=== PATIENT | male | born 1945 ===

== ENCOUNTER 2018-05-23 00:30 | Inpatient (IN) | payer OTHER ==
[2018-05-23] MEDS: Sodium Chloride 0.9% 1,000 ML IV SCH ×3 (00:45→16:45)
[2018-05-23] MEDS ORDERED: Lidocaine 1% w/Epinephrine 1:100K 20 ML VIAL ONE (00:49)
[2018-05-23 01:28] LABS: Band 20 % (5-11); Hemoglobin 12.2 g/dL (14.0-18.0); Lymphocytes 4 % (21-51); MDiff Complete? YES; Mean Corpuscular HGB CONC 33.6 g/dL (32.0-36.0); Mean Corpuscular Hemoglobin 30.5 pg (27.0-31.0); Mean Corpuscular Volume 90.7 fL (78.0-98.0); Mean Platelet Volume 7.3 fL (7.4-10.4); Monocytes 3 % (0-10); Neutrophil 73 % (42-75); Platelet Count 200 thou/uL (130-400); RBC Distribution Width 12.4 % (11.5-14.5); Red Blood Cell (RBC) Count 4.02 mill/uL (4.70-6.10); White Blood Cell (WBC) Count 10.4 thou/uL (4.8-10.8)
[2018-05-23 01:31] LABS: ALT (SGPT) 12 U/L (8-55); AST (SGOT) 22 U/L (5-34); Albumin 3.9 g/dL (3.4-4.8); Alkaline Phosphatase 71 U/L (40-150); Anion Gap 13 mmol/L (10-20); BUN (Urea Nitrogen) 15 mg/dL (8.4-25.7); Bilirubin, Total 0.4 mg/dL (0.2-1.2); Calc. Creatinine Clearance 0 mL/min (70-130); Calcium 8.5 mg/dL (7.8-10.44); Carbon Dioxide 20 mmol/L (23-31); Chloride 106 mmol/L (98-107); Estimated GFR-MDRD 83; Glucose 116 mg/dL (83-110); Potassium 3.5 mmol/L (3.5-5.1); Protein, Total 6.9 g/dL (5.8-8.1); Sodium 135 mmol/L (136-145)
[2018-05-23] MEDS ORDERED: Meropenem 2 GM, Admixture Fee 1 EACH in Sodium Chloride 0.9% 100 ML IVPB SCH (02:00)
[2018-05-23 02:07] LABS: Bilirubin Negative (Negative); Blood, Urine Small (Negative); Clarity CLOUDY (Clear); Glucose, Urine (Dipstick) Negative (Negative); Leukocyte Moderate (Negative); Nitrite Positive (Negative); Protein, Urine (Dipstick) Negative (Neg-Trace); Specific Gravity, Urine 1.019 (1.002-1.036); Urobilinogen 0.2 mg/dL (0.2-1.0); pH, Urine 5.5 (5.0-9.0)
[2018-05-23 02:09] LABS: Bacteria/HPF 4+ HPF (None Seen); Hyaline Casts/LPF 0-3 HYALINE CAST LPF (0-3 Hyaline); Pathc Cast-AUWi Flag 0.14 (0-2.49); Squamous Epithelial 0-3 HPF (0-3)
[2018-05-23 02:23] LABS: Renal Epithelial None Seen HPF (0-3); Transitional Epithelial NONE SEEN HPF (0-3)
[2018-05-23] MEDS ORDERED: Morphine 4 MG/ML VIAL ONE ×2 (02:28→04:13)
[2018-05-23] MEDS ORDERED: Ondansetron PF 4 MG/2 ML Vial IVP PRN (03:16)
[2018-05-23 04:34] LABS: #Lymphocytes 0.4 thou/uL (1.20-3.40); #Monocytes 0.5 thou/uL (0.11-0.59); #Neutrophils 9.7 thou/uL (1.40-6.50); %Basophils 0.1 % (0.0-1.0); %Lymphocytes 3.3 % (21.0-51.0); %Monocytes 4.5 % (0.0-10.0); %Neutrophils 92.1 % (42.0-75.0); Hemoglobin 10.2 g/dL (14.0-18.0); Mean Corpuscular HGB CONC 33.7 g/dL (32.0-36.0); Mean Corpuscular Hemoglobin 30.6 pg (27.0-31.0); Mean Corpuscular Volume 90.6 fL (78.0-98.0); Mean Platelet Volume 7.7 fL (7.4-10.4); Platelet Count 181 thou/uL (130-400); RBC Distribution Width 12.3 % (11.5-14.5); Red Blood Cell (RBC) Count 3.34 mill/uL (4.70-6.10); White Blood Cell (WBC) Count 10.5 thou/uL (4.8-10.8)
[2018-05-23 04:45] LABS: Lactic Acid 1.7 mmol/L (0.5-2.2)
[2018-05-23 04:50] LABS: Anion Gap 9 mmol/L (10-20); BUN (Urea Nitrogen) 13 mg/dL (8.4-25.7); Calc. Creatinine Clearance 0 mL/min (70-130); Calcium 7.2 mg/dL (7.8-10.44); Carbon Dioxide 20 mmol/L (23-31); Chloride 109 mmol/L (98-107); Estimated GFR-MDRD Greater than 90; Glucose 121 mg/dL (83-110); Potassium 3.3 mmol/L (3.5-5.1); Sodium 135 mmol/L (136-145)
[2018-05-23 06:28] VITALS: BMI 26.9
[2018-05-23] MEDS ORDERED: Enoxaparin Sodium 40 MG/0.4 ML SYRINGE SC SCH (09:00)
[2018-05-23] MEDS: Acetaminophen 325 MG TAB PO PRN ×2 (09:04→19:36)
--- NOTE | 2018-05-23 09:13 | RAD ---
CHEST 1 VIEW: HISTORY: Central line placement. COMPARISON: None. FINDINGS: There is a central line with tip at the mid SVC. No pneumothorax. Likely chronic elevation of the left hemidiaphragm. IMPRESSION: Uncomplicated placement of a central catheter. POS: CEDRICK
--- NOTE | 2018-05-23 09:36 | CT ---
PRELIMINARY REPORT/[facility]/EMERGENTY AFTER-HOURS PROCEDURE CT Abdomen and Pelvis With Intravenous Contrast EXAM DATE/TIME: 05/23/2018 1:53 AM CLINICAL HISTORY: 72 years old, male; Pain; Abdominal pain; Generalized; Patient HX: Jarek presents to the ed C/O abdomin al pain after being transported by ems. Ems reports hr 115, BP 103 sbp, temp 103.0, given 650mg tylen ol. 300 ml ns. PT reports pain began 6-8 hrs ago. PT has erythema to the left foot. TECHNIQUE: Axial computed tomography images of the abdomen and pelvis with intravenous contrast. Coronal reformatted images were created and reviewed. COMPARISON: No relevant prior studies available. FINDINGS: Lower thorax: No acute findings. ABDOMEN: Liver: Normal. No mass. Gallbladder and bile ducts: Normal. No calcified stones. No ductal dilation. Pancreas: Normal. No ductal dilation. Spleen: Normal. No splenomegaly. Adrenals: Normal. No mass. Kidneys and ureters: Small incidental left renal cyst. Kidneys otherwise unremarkable. Stomach and bowel: No bowel wall thickening or intestinal obstruction. Colonic diverticulosis. No div erticulitis. Appendix: Appendix not visualized. No evidence of appendicitis. PELVIS: Bladder: Unremarkable as visualized. Reproductive: Mild prostatomegaly. ABDOMEN and PELVIS: Intraperitoneal space: Normal. No free air. No significant fluid collection. Bones/joints: Multifocal sclerotic osseous lesions in the sacrum and pelvic bones, potentially repres enting metastases. Soft tissues: Small umbilical hernia containing fat only. Vasculature: Normal. No abdominal aortic aneurysm. Lymph nodes: Bulky retroperitoneal and bilateral iliac chain lymphadenopathy. Enlarged left inguinal lymph nodes. The largest measures 1.5 cm short axis with mild associated inflammation. Mildly increased attenuation of the mesentery near its root with pseudocapsule and small associated mesenteric lymph nodes, consistent with mesenteric panniculitis. IMPRESSION: 1. Bulky retroperitoneal and bilateral iliac chain lymphadenopathy compatible with lymphoma or metast atic disease. 2. Enlarged left inguinal lymph nodes. The largest measures 1.5 cm short axis with mild associated in flammation. This could represent lymphadenitis, lymphoma, or metastatic disease. 3. Mesenteric panniculitis. 4. Multifocal sclerotic osseous lesions in the sacrum and pelvic bones, potentially representing meta stases. Thank you for allowing us to participate in the care of your patient. Dictated and Authenticated by: Ivan Ann MD 05/23/2018 2:23 AM Central Time ([place] & [place]) FINAL REPORT AD AND PELVIC CT SCAN WITH IV CONTRAST: EMERGENCY AFTER HOURS EXAM TIME: 1:55 a.m. DATE: 05/23/2018. FINDINGS: There are extensive abnormal lymph nodes in the retroperitoneum, periaortic region, aortocaval region , as well as the right and left iliac chains and in the upper pelvis with periaortic nodes up to 3.5 cm and right iliac node up to 3.7 cm and right pelvic node up to 2.8 cm. There are some minimally en larged reactive inguinal nodes worse on the left side. Central mesenteric fat stranding with a pseud omembrane, evidence for mesenteric panniculitis. Fat-containing umbilical hernia. There is a partia l cleft-type appearance involving the rectum vertically oriented extending from near the anus up to t he rectosigmoid. I am not certain as to the etiology of this, conceivably this could be related to p rior surgery, although there are no surgical sutures. Another consideration would be that of a recto colonic fistula, possibly secondary to radiation or prior anorectal ulceration. Consideration for a nonemergent followup colonoscopy in this regard is suggested. There is some minimal linear stranding in the left lower abdomen, possibly some trace free fluid or some thickening. This report, particularly concerning the lymphadenopathy and the bone metastasis, and the abnormal-ap pearing rectum were discussed with Nurse Pittman in the ICU. Recommendation for followup nonemergent colonoscopy. Disagree with [facility]. The abnormal-appearing rectum was not mentioned. POS: CEDRICK
--- NOTE | 2018-05-23 13:36 | CON ---
DATE OF CONSULTATION: 05/23/2018 HISTORY OF PRESENT ILLNESS: Mr. Colon is a [facility] inmate who has a history of being diagnosed with prostate cancer last year. He said he has been receiving shots for the cancer to try to keep it out of his bones, but denies ever being told he had metastatic disease. He presented with abdominal discomfort and fever. CT of his abdomen and pelvis showed extensive lymphadenopathy. He is admitted to the Critical Care Unit. He has received several liters of volume replacement and actually says he feels closer to his baseline now. PAST MEDICAL HISTORY: Remarkable for a lipid disorder, hypertension, coronary artery bypass grafting, valve replacement in the past and appendectomy. FAMILY HISTORY: Not obtained. SOCIAL HISTORY: Non contributory. ALLERGIES: Reports an allergy to ASPIRIN. MEDICATIONS: Prior to admission, he was reportedly on aspirin, Plavix, Lasix, atorvastatin, lisinopril, amantadine, 5 mg of prednisone and ranitidine. REVIEW OF SYSTEMS: Ten point review of systems completed, otherwise negative. PHYSICAL EXAMINATION: GENERAL: He says he just hurts all over. He is a fairly tangential historian. VITAL SIGNS: Blood pressure 97/52, heart rate is 80, respiratory rate is 21, oximetry is 98. HEENT: Pupils are equal. Sclerae are anicteric. NECK: Supple. No cervical lymphadenopathy. LUNGS: Clear. HEART: Regular rhythm. S1 and S2 are audible. This is a grade 2/6 systolic murmur. ABDOMEN: Soft, protuberant, nontender. EXTREMITIES: Without clubbing, cyanosis or edema. LABORATORY DATA: Sodium 135, potassium 3.3, chloride 109, bicarbonate 20, BUN 13, creatinine 0.76. White count 10.5, hemoglobin 10.2, platelets 181,000. Urinalysis 7-10 white cells, 4-6 red cells. IMPRESSION: Probable metastatic prostate cancer. Enlarged left inguinal lymph node was seen on CAT scan. I could barely palpate this on exam. He had multiple sclerotic osseous lesions in his sacrum and pelvis consistent with metastatic disease as well. I suspect most of his discomfort and all of the radiographic abnormalities are related to metastatic prostate cancer. He will need referral back to [facility] Oncology clinic or an inpatient evaluation. I do not find anything going on that is acute at this time. He has responded well to volume resuscitation and could be transferred out of the medical unit. There are no positive cultures reported back yet. He does not need critical care monitoring in my opinion. This is a 70 minute consult, with greater than 50% of time spent on unit in coordination of care. WILL
[2018-05-24] MEDS: Acetaminophen 325 MG TAB PO PRN (03:51)
[2018-05-24] MEDS ORDERED: traMADol HCl 50 MG TAB PO PRN ×2 (08:42)
[2018-05-24] MEDS ORDERED: Morphine 4 MG/ML VIAL SLOW IVP PRN (09:00)
--- NOTE | 2018-05-24 09:06 | PDOC.PN ---
- Subjective Encounter Start Date: 05/24/18 (f/u sepsis) Encounter Start Time: 09:03 Subjective: pt c/o fever this morning and left sided abd pain. denies any difficulty -: with urination. low appetite. denies any problems with bm's - Objective Resuscitation Status: Resuscitation Status FULL:Full Resuscitation Vital Signs & Weight: Vital Signs (12 hours) Temp Pulse Resp BP Pulse Ox 05/24/18 08:10 98.7 F 76 18 129/60 99 05/24/18 06:29 98.8 F 05/24/18 03:53 100.5 F H 84 22 H 120/58 L 96 05/23/18 23:31 99.1 F 74 18 128/60 99 Weight Admit Weight 199 lb Weight 198 lb 10.184 oz Most Recent Monitor Data Heart Rate from ECG 94 NIBP 116/57 NIBP BP-Mean 76 Respiration from ECG 19 SpO2 100 I&O: 05/23/18 05/24/18 05/25/18 06:59 06:59 06:59 Intake Total 240 Output Total 625 Balance -385 Result Diagrams: 05/24/18 08:36 05/24/18 08:36 Phys Exam - Physical Examination Constitutional: NAD Respiratory: no wheezing, no rales, no rhonchi, clear to auscultation bilateral Cardiovascular: RRR, no significant murmur Gastrointestinal: soft, positive bowel sounds ttp along left side with palpable fullness. No rebound/guarding Musculoskeletal: no edema Neurological: non-focal, moves all 4 limbs Psychiatric: normal affect Deviation from normal: slight erythema along distal LLE - pt reports normal for hm -: no induration Dx/Plan (1) Metastatic malignant neoplasm to prostate Code(s): C79.82 - SECONDARY MALIGNANT NEOPLASM OF GENITAL ORGANS Status: Acute (2) Hypertension Code(s): I10 - ESSENTIAL (PRIMARY) HYPERTENSION Status: Chronic Qualifiers: Hypertension type: essential hypertension Qualified Code(s): I10 - Essential (primary) hypertension (3) Coronary artery disease Code(s): I25.10 - ATHSCL HEART DISEASE OF [place] CORONARY ARTERY W/O ANG PCTRS Status: Chronic (4) Dyslipidemia Code(s): E78.5 - HYPERLIPIDEMIA, UNSPECIFIED Status: Chronic - Plan * Pt admitted with sepsis dx, not currently on abx and cx negative at this time with only fever 100.5 this morning. Follow cultures and start abx if increasing * consult Onc for metastatic disease and tx choices * resume home meds except aspirin as pt reports itching with aspirin. He has a hx of coronary stents and reports the last one in 2002. Will continue with plavix only and continue the lovenox or dvt prophy * change diet to soft mechanical and see if this helps with appetite, add ensure enlive bid * add pain meds oral and IV * lower IV fluid rate and monitor PO intake * * anticipate pt here at least another 24 hours monitoring cultures * * dvt prophy - lovenox * gi prophy - pt on ranitidine at the facility - continue that * code status full * * palliative care consult as well * * reviewed plan of care with patient, no qeustions or further needs at end of eval. * * 21:11 - reviewed chart and pt with E Coli in urine - will start Rocephin now, anticipate sensitivities tomorrow. Review with pharmacist - pt did receive meropenem 05/23 at 6:30 and a dose of Vancomycin at 02:30 05/23. No indication for broad spectrum abx at this time.
[2018-05-24 09:17] LABS: #Eosinphils 0.1 thou/uL (0.0-0.7); #Lymphocytes 1.1 thou/uL (1.20-3.40); #Monocytes 0.4 thou/uL (0.11-0.59); #Neutrophils 4.8 thou/uL (1.40-6.50); %Basophils 0.3 % (0.0-1.0); %Eosinophils 2.1 % (0.0-10.0); %Lymphocytes 17.5 % (21.0-51.0); %Neutrophils 74.1 % (42.0-75.0); Hemoglobin 11.1 g/dL (14.0-18.0); Mean Corpuscular HGB CONC 33.3 g/dL (32.0-36.0); Mean Corpuscular Hemoglobin 30.4 pg (27.0-31.0); Mean Corpuscular Volume 91.2 fL (78.0-98.0); Mean Platelet Volume 7.9 fL (7.4-10.4); Platelet Count 168 thou/uL (130-400); RBC Distribution Width 12.5 % (11.5-14.5); Red Blood Cell (RBC) Count 3.66 mill/uL (4.70-6.10); White Blood Cell (WBC) Count 6.5 thou/uL (4.8-10.8)
[2018-05-24] MEDS: predniSONE 5 MG TAB PO SCH ×2 (09:22→20:27)
[2018-05-24] MEDS: Clopidogrel Bisulfate 75 MG TAB PO SCH (09:22)
[2018-05-24] MEDS: Famotidine 20 MG TAB PO SCH ×2 (09:22→20:27)
[2018-05-24] MEDS: Atorvastatin Calcium 40 MG TAB PO SCH (09:22)
[2018-05-24] MEDS: Amantadine HCl 100 mg Capsule PO SCH ×2 (09:23→20:27)
[2018-05-24] MEDS: Sodium Chloride 0.9% 1,000 ML IV SCH (09:24)
[2018-05-24] MEDS: Morphine 2 MG/ML SYRINGE SLOW IVP PRN ×2 (09:26→20:29)
[2018-05-24 09:38] LABS: ALT (SGPT) 10 U/L (8-55); AST (SGOT) 26 U/L (5-34); Alkaline Phosphatase 55 U/L (40-150); Anion Gap 11 mmol/L (10-20); BUN (Urea Nitrogen) 10 mg/dL (8.4-25.7); Bilirubin, Total 0.4 mg/dL (0.2-1.2); Calc. Creatinine Clearance 113 mL/min (70-130); Calcium 7.3 mg/dL (7.8-10.44); Carbon Dioxide 19 mmol/L (23-31); Chloride 110 mmol/L (98-107); Estimated GFR-MDRD Greater than 90; Globulin 2.6 g/dL (2.4-3.5); Glucose 144 mg/dL (83-110); Potassium 3.6 mmol/L (3.5-5.1); Protein, Total 5.6 g/dL (5.8-8.1); Sodium 136 mmol/L (136-145)
--- NOTE | 2018-05-24 14:30 | HP ---
PRIMARY CARE DOCTOR: The patient is in halfway. CODE STATUS: FULL CODE. TIME OF EVALUATION: 3:10 a.m. CHIEF COMPLAINT: Abdominal pain. HISTORY OF PRESENT ILLNESS: This is a 72-year-old male patient with past medical history of hypertension; hyperlipidemia; CAD; prostate cancer; history of cardioversion, valve replacement; came to the hospital after having abdominal pain that was severe especially in the lower abdomen associated with fever, hypotension, heart rate 115, no clear triggers, no alleviating factors. The patient was treated in the ER with fluid resuscitation, blood pressure was recovered, most likely severe sepsis. Urine was positive. REVIEW OF SYSTEMS: Constitutional: The patient had fever, chills, generalized weakness. Respiratory: No cough, sputum production, shortness of breath. Cardiovascular: No chest pain, palpitation. Gastrointestinal: No nausea, no vomiting, diarrhea or abdominal pain. Central Nervous Systems: No dizziness, headache, or feeling lightheaded. Genitourinary: No burning on urination. Extremities: The patient has bilateral leg swelling. All other systems were reviewed and are negative except for the findings mentioned above. PAST MEDICAL HISTORY: Mentioned in the HPI. FAMILY HISTORY: The patient reported that the father history is unknown. Mother had bone cancer. PAST SURGICAL HISTORY: CABG x3, valve replacement. PSYCHIATRIC HISTORY: No previous psychiatric history. SOCIAL HISTORY: The patient lives in halfway. No alcohol, no drugs. No smoking history. ALLERGIES: ASPIRIN, . REPORTED MEDICATIONS: Plavix, furosemide, lisinopril, amantadine, atorvastatin , calcium , prednisone, ranitidine. PHYSICAL EXAMINATION: VITAL SIGNS: On presentation, blood pressure 101/54 with heart rate 112, respiratory rate was 20, temperature 101.5, oxygen saturations 97 on room air, reportedly patient with systolic blood pressure in the 80s that are responded to fluid resuscitation. GENERAL APPEARANCE: The patient is alert, oriented, not in any acute distress. HEENT: Eyes, normal conjunctivae. Dry oral mucosa. Anicteric. NECK: No JVD. RESPIRATORY: Bilateral air entry. No rales, no wheezing. Symmetric expansion. CARDIOVASCULAR: Normal rate, regular rhythm. No murmurs, no gallop. Bilateral leg edema. ABDOMEN: Soft, normal bowel sounds. MUSCULOSKELETAL: Baseline range of motion and strength. No tenderness. SKIN: Warm and intact. No pallor, no rash, no redness. Peripheral pulses are present. Capillary refill seems to be intact. NEUROLOGIC: No evidence of any new focal weakness. Baseline speech. Cranial nerves seem to be intact. PSYCHIATRIC: Good mood. No anxiety. Oriented, optimal judgment. IMAGING: Abdomen and pelvis CT report are pending. It was reported that the patient had findings compatible with lymphoma with no other significant findings reported by Cardiology. LABORATORY DATA: Labs were reviewed. White count 10.4, hemoglobin 12.2, MCV 90 , platelet count 200. Sodium 135, potassium 3.5, chloride 106, carbon dioxide 20, anion gap 13, BUN 15, creatinine 0.9, GFR 83, glucose . Lactic acid 2.2, calcium 9.5, total bilirubin 0.4. LFTs were normal. UA was done and was positive for white count 7-10, and leukocyte esterase moderate, nitrite positive. ASSESSMENT AND PLAN: The patient will be placed in the ICU with the following medical problems. Critical care time more than 35 minutes using bedside assessment, coordination of care, review and elaboration of records. 1. Severe sepsis. The patient was given aggressive hydration arrival to the ER. Reportedly, patient came with systolic blood pressure in the 80s, has recovered after initial bolus. We will monitor. We will treat the patient with antibiotics. Follow cultures and adjust treatment as per sensitivity. 2. Possible urinary tract infection. UA is positive. The patient has a history of prostate cancer, we will treat with antibiotics. We will adjust treatment as needed per sensitivity. 3. Possible lymphoma as reported on the CAT scan. This will need further workup and follow up as needed. 4. Hyponatremia with sodium 135. This is mild, no need for any acute intervention. 5. History of coronary artery disease, reconcile home medications, adjust treatment as needed. 6. Deep venous thrombosis prophylaxis. MTDD
--- NOTE | 2018-05-24 20:46 | CON ---
DATE OF CONSULTATION: 05/24/2018 REASON FOR CONSULTATION: Metastatic prostate cancer. HISTORY: This is a 72-year-old male with a longtime resident of [facility]. The history was obta ined by talking to the patient without any documentary records. He was diagnosed with prostate cance r with bone metastasis, a year and half ago. He has been receiving his care under oncologist in [facility]. He has been getting an injection every 3 months. Last injection was approximately four month s ago. The patient apparently heard that there is nothing that can be done and refused to go there s sherman his last treatment. He is not aware of any problem with lymph nodes. He denied of pain. OUTPATIENT MEDICATIONS: Aspirin, Plavix, Lasix, atorvastatin, lisinopril, amantadine, prednisone and ranitidine. PAST MEDICAL HISTORY: Positive for dyslipidemia, hypertension, coronary artery bypass graft, valve r eplacement, and appendectomy. REVIEW OF SYSTEMS: Ten-point system review was performed. He denies headache, diplopia, unequal ext remity weakness, and back pain. PHYSICAL EXAMINATION: GENERAL: The patient is under several plastic restraining devices. HEENT: Unremarkable. LYMPH NODES: Not palpable in cervical, supraclavicular, axillary, and right and left inguinal areas. CHEST: Clear to percussion and auscultation. HEART: Regular rhythm. S1 and S2. ABDOMEN: Soft. No obvious hepatosplenomegaly. No tenderness. EXTREMITIES: Without pedal edema. There is erythema of the skin over the lower fourth of the left l eg and around ankle area. There is no calf tenderness. LABORATORY AND X-RAY FINDINGS: CBC showed WBC of 6500, hemoglobin 11.1, and platelet count of 168,00 0. Differential showed 74.1% neutrophils and 17.5% lymphocytes. Chemistry profile shows PSA of 37.4 3. Serum calcium is 7.3, albumin 3.0, and globulin 2.6. Alkaline phosphatase is normal at 55. IMAGING STUDIES: Chest x-ray did not report any abnormalities. Abdominal pelvic CT scan with IV con trast reports a bulky retroperitoneal and bilateral iliac chain lymphadenopathy, size not specified. I did not feel any left inguinal adenopathy. The largest lymph node sizes mentioned 1.5 cm. Yoselyn benavides, I believe this is in the inguinal area. Abdominal lymph nodes appeared to be larger than that. ASSESSMENT AND RECOMMENDATIONS: This patient has prostate cancer with bone metastasis. The largest lymph node could be from prostate cancer itself though lymphoma cannot be excluded. It was explained to the patient that his Lupron should be continued indefinitely. I think he needs to be referred ba to [facility] for reevaluation and resumption of treatment. Chemotherapy was considered according to patient statement but was not started because he did not have veins; however, there are such as abiraterone or Xtandi, which can control his prostate disease. Thanks very much for allowing me to participate in this patient's care. I do not intend to provide f ollow up but will recommend referral back to [place] at [facility]. Thanks for this consult.
[2018-05-24] MEDS ORDERED: Enoxaparin Sodium 40 MG/0.4 ML SYRINGE SC SCH (21:00)
[2018-05-24] MEDS: cefTRIAXone\\ROCEPHIN 2 GM in Sodium Chloride 0.9% 100 ML IVPB SCH (21:51)
[2018-05-25] MEDS: Morphine 2 MG/ML SYRINGE SLOW IVP PRN ×4 (00:57→22:11)
[2018-05-25 05:17] LABS: #Eosinphils 0.1 thou/uL (0.0-0.7); #Lymphocytes 0.8 thou/uL (1.20-3.40); #Monocytes 0.5 thou/uL (0.11-0.59); #Neutrophils 4.9 thou/uL (1.40-6.50); %Basophils 0.3 % (0.0-1.0); %Eosinophils 0.8 % (0.0-10.0); %Lymphocytes 13.1 % (21.0-51.0); %Monocytes 7.9 % (0.0-10.0); %Neutrophils 77.8 % (42.0-75.0); Hemoglobin 10.5 g/dL (14.0-18.0); Mean Corpuscular HGB CONC 33.2 g/dL (32.0-36.0); Mean Corpuscular Hemoglobin 29.8 pg (27.0-31.0); Mean Corpuscular Volume 89.7 fL (78.0-98.0); Mean Platelet Volume 7.6 fL (7.4-10.4); Platelet Count 169 thou/uL (130-400); RBC Distribution Width 12.2 % (11.5-14.5); Red Blood Cell (RBC) Count 3.51 mill/uL (4.70-6.10); White Blood Cell (WBC) Count 6.3 thou/uL (4.8-10.8)
[2018-05-25 05:35] LABS: Anion Gap 10 mmol/L (10-20); BUN (Urea Nitrogen) 9 mg/dL (8.4-25.7); Calc. Creatinine Clearance 120 mL/min (70-130); Calcium 7.6 mg/dL (7.8-10.44); Carbon Dioxide 22 mmol/L (23-31); Chloride 109 mmol/L (98-107); Estimated GFR-MDRD Greater than 90; Glucose 105 mg/dL (83-110); Potassium 3.7 mmol/L (3.5-5.1); Sodium 137 mmol/L (136-145)
[2018-05-25] MEDS: Atorvastatin Calcium 40 MG TAB PO SCH (08:24)
[2018-05-25] MEDS: predniSONE 5 MG TAB PO SCH ×2 (08:24→20:02)
[2018-05-25] MEDS: Clopidogrel Bisulfate 75 MG TAB PO SCH (08:24)
[2018-05-25] MEDS: Amantadine HCl 100 mg Capsule PO SCH ×2 (08:24→20:02)
[2018-05-25] MEDS: Famotidine 20 MG TAB PO SCH ×2 (08:24→20:01)
[2018-05-25] MEDS: Sodium Chloride 0.9% 1,000 ML IV SCH (13:09)
--- NOTE | 2018-05-25 17:40 | PDOC.PN ---
- Subjective Encounter Start Date: 05/25/18 Encounter Start Time: 10:30 Patient seen and examined for Sepsis/UTI. No new complaints. No overnight events - Objective Resuscitation Status: Resuscitation Status FULL:Full Resuscitation MAR Reviewed: Yes Vital Signs & Weight: Vital Signs (12 hours) Temp Pulse Resp BP Pulse Ox 05/25/18 17:27 98.1 F 05/25/18 11:59 98.7 F 05/25/18 08:27 97.9 F 78 18 142/65 H 98 05/25/18 08:00 98 Weight Admit Weight 199 lb Weight 198 lb 10.184 oz Most Recent Monitor Data Heart Rate from ECG 94 NIBP 116/57 NIBP BP-Mean 76 Respiration from ECG 19 SpO2 100 I&O: 05/24/18 05/25/18 05/26/18 06:59 06:59 06:59 Intake Total 240 3290 1550 Output Total 625 2675 600 Balance -385 615 950 Result Diagrams: 05/25/18 05:06 05/25/18 05:06 Phys Exam - Physical Examination Constitutional: NAD Cardiovascular: RRR, no rub Gastrointestinal: soft, non-tender, positive bowel sounds Musculoskeletal: no edema Neurological: moves all 4 limbs Dx/Plan - Plan DVT proph w/SCDs 1. Sepsis with UTI 2. Metastatic Prostate Ca 3. HTN 4. HLD 5. CAD/Hypokalemia/Urinary retntion PLAN: Cont Ceftriaxone Cont other meds as below Postvoid residual >300 Add Flomax AM labs Microbiology 05/23/18 01:48 Urine clean catch Urine Culture - Final Escherichia coli 05/23/18 01:15 Venous blood - Left Arm Blood Culture - Preliminary NO GROWTH AT 48 HOURS 05/23/18 00:35 Venous blood - Right Arm Blood Culture - Preliminary NO GROWTH AT 48 HOURS Review of Systems - Review of Systems Respiratory: negative: Cough, Dry, Shortness of Breath, Hemoptysis, SOB with Excertion, Pleuritic Pain, Sputum, Wheezing Cardiovascular: negative: chest pain, palpitations, orthopnea, paroxysmal nocturnal dyspnea, edema, light headedness, other - Medications/Allergies Allergies/Adverse Reactions: Allergies Allergy/AdvReac Type Severity Reaction Status Date / Time aspirin Allergy Rash Verified 05/24/18 08:46 mupirocin [From Bactroban] Allergy Hives Verified 05/24/18 02:20 Medications: Current Medications Acetaminophen (Tylenol) 650 mg PO Q4H PRN PRN Reason: Headache/Fever/Mild Pain (1-3) Last Admin: 05/24/18 03:51 Dose: 650 mg Amantadine HCl (Symmetrel) 100 mg PO BID [facility] Last Admin: 05/25/18 08:24 Dose: 100 mg Atorvastatin Calcium (Lipitor) 40 mg PO DAILY [facility] Last Admin: 05/25/18 08:24 Dose: 40 mg Clopidogrel Bisulfate (Plavix) 75 mg PO DAILY [facility] Last Admin: 05/25/18 08:24 Dose: 75 mg Famotidine (Pepcid) 20 mg PO BID [facility] Last Admin: 05/25/18 08:24 Dose: 20 mg Sodium Chloride (Normal Saline 0.9%) 1,000 mls @ 50 mls/hr IV .Q20H [facility] Last Admin: 05/25/18 13:09 Dose: 1,000 mls Ceftriaxone Sodium 2 gm/ (Sodium Chloride) 100 mls @ 200 mls/hr IVPB Q24HR [facility] Last Admin: 05/24/18 21:51 Dose: 100 mls Morphine Sulfate (Morphine) 2 mg SLOW IVP Q4H PRN PRN Reason: Mild-Moderate Pain (1-5) Last Admin: 05/25/18 15:37 Dose: 2 mg Morphine Sulfate (Morphine) 4 mg SLOW IVP Q4H PRN PRN Reason: Severe Pain (7-10) Ondansetron HCl (Zofran) 4 mg IVP Q6H PRN PRN Reason: Nausea/Vomiting Prednisone (Prednisone) 5 mg PO BID [facility] Last Admin: 05/25/18 08:24 Dose: 5 mg Tamsulosin HCl (Flomax) 0.4 mg PO [facility] Tramadol HCl (Ultram) 50 mg PO Q6H PRN PRN Reason: Mild-Moderate Pain (1-5) Last Admin: 05/24/18 09:28 Dose: 50 mg Tramadol HCl (Ultram) 100 mg PO Q6H PRN PRN Reason: Moderate to Severe Pain (6-10)
[2018-05-25] MEDS ORDERED: Tamsulosin HCl 0.4 MG CAP PO SCH (21:00)
[2018-05-25] MEDS ORDERED: Potassium Chloride 20 MEQ TAB PO SCH (21:00)
[2018-05-25] MEDS: cefTRIAXone\\ROCEPHIN 2 GM in Sodium Chloride 0.9% 100 ML IVPB SCH (21:25)
[2018-05-26 05:40] LABS: #Eosinphils 0.1 thou/uL (0.0-0.7); #Monocytes 0.4 thou/uL (0.11-0.59); #Neutrophils 3.5 thou/uL (1.40-6.50); %Basophils 0.3 % (0.0-1.0); %Eosinophils 2.3 % (0.0-10.0); %Lymphocytes 20.5 % (21.0-51.0); %Monocytes 8.4 % (0.0-10.0); %Neutrophils 68.5 % (42.0-75.0); Hemoglobin 10.5 g/dL (14.0-18.0); Mean Corpuscular HGB CONC 33.8 g/dL (32.0-36.0); Mean Corpuscular Hemoglobin 30.5 pg (27.0-31.0); Mean Corpuscular Volume 90.1 fL (78.0-98.0); Mean Platelet Volume 7.7 fL (7.4-10.4); Platelet Count 185 thou/uL (130-400); RBC Distribution Width 12.2 % (11.5-14.5); Red Blood Cell (RBC) Count 3.45 mill/uL (4.70-6.10); White Blood Cell (WBC) Count 5.1 thou/uL (4.8-10.8)
[2018-05-26 06:01] LABS: Anion Gap 10 mmol/L (10-20); BUN (Urea Nitrogen) 8 mg/dL (8.4-25.7); Calc. Creatinine Clearance 120 mL/min (70-130); Calcium 7.8 mg/dL (7.8-10.44); Carbon Dioxide 22 mmol/L (23-31); Chloride 110 mmol/L (98-107); Estimated GFR-MDRD Greater than 90; Glucose 102 mg/dL (83-110); Potassium 3.8 mmol/L (3.5-5.1); Sodium 138 mmol/L (136-145)
[2018-05-26] MEDS ORDERED: Potassium Chloride 20 MEQ TAB PO SCH (08:00)
[2018-05-26] MEDS ORDERED: Potassium Chloride 10 MEQ TAB PO SCH (08:00)
[2018-05-26] MEDS: Amantadine HCl 100 mg Capsule PO SCH (08:23)
[2018-05-26] MEDS: Atorvastatin Calcium 40 MG TAB PO SCH (08:23)
[2018-05-26] MEDS: Clopidogrel Bisulfate 75 MG TAB PO SCH (08:23)
[2018-05-26] MEDS: Famotidine 20 MG TAB PO SCH (08:23)
[2018-05-26] MEDS: predniSONE 5 MG TAB PO SCH (08:24)
[2018-05-26] MEDS: Morphine 2 MG/ML SYRINGE SLOW IVP PRN (08:28)
[2018-05-26] MEDS: Sodium Chloride 0.9% 1,000 ML IV SCH (10:17)
[2018-05-26 10:29] VITALS: BP 150/69
[2018-05-26 12:21] VITALS: TEMP 98.7
--- NOTE | 2018-05-27 09:54 | DIS ---
DATE OF ADMISSION: 05/23/2018 DATE OF DISCHARGE: 05/26/2018 DISCHARGE DISPOSITION: The patient is an inmate. FOLLOWUP: 1. Follow up with primary care physician at the facility. 2. Follow up with Oncology as well as Urology at [facility]. DISCHARGE MEDICATIONS: 1. Ciprofloxacin 500 mg twice a day for 1 week. 2. Flomax 0.4 mg nightly. 3. All other home medications were left unchanged. The patient was seen and examined on the day of discharge. Denies any new complaints. No chest pain, shortness of breath, or palpitations reported. INPATIENT GENERAL SCIENCE TEACHER: Oncology Service, Dr. Dobbs. DIAGNOSTIC TESTS: CT abdomen and pelvis on admission showed bulky retroperitoneal and bilateral iliac chain lymphadenopathy compatible with lymphoma or metastatic disease. He also had enlarged left inguinal lymph node. There were multifocal sclerotic osseous lesions in the sacrum and pelvic bones potentially representing metastasis. BRIEF HOSPITAL COURSE: The patient is a 72-year-old male with hypertension, hyperlipidemia, prostate cancer in the past, and coronary artery disease, presented to the hospital on May 23, 2018, with abdominal discomfort. Please refer to the history and physical for further details. The patient was admitted to the hospital with a diagnosis of sepsis. His initial vital signs in the emergency room showed temperature of 101.5, respirations 20, pulse rate of 112, with a blood pressure of 101/54. His blood culture remained negative. Urine culture showed E. coli, sensitive to ciprofloxacin. His antibiotics have been changed to oral. He has been afebrile over the last 48 hours. His postvoid residual initially was more than 350. He was started on Flomax with good improvement. His postvoid residual today was 276. He was advised to follow up with Urology at [facility]. He will also need a followup with Oncology for metastasis found on the CT scan as discussed above. FINAL DIAGNOSES: 1. Sepsis secondary to Escherichia coli urinary tract infection. 2. Urinary retention, started on Flomax. 3. Metastatic prostate cancer as discussed above. 4. Hypertension. 5. Hyperlipidemia. 6. Coronary artery disease. 7. Hypokalemia. 8. Hyponatremia. DIAGNOSTIC TESTS: 1. PSA was 37.43. 2. Urinalysis showed 7 to 10 wbc's with 4+ bacteria. Total time coordinating the discharge of this patient was 36 minutes. Job ID: [id number]
== END 2018-05-26 14:33 | DRG 872 ==
LOC: ERS 00:30 → CCU 02:45 → ONC 12:40
PROVIDERS: ADMIT Hospitalist; ATTEND Hospitalist
DX: A41.51 Sepsis due to Escherichia coli [E. coli] (principal); N39.0 Urinary tract infection, site not specified; C79.82 Secondary malignant neoplasm of genital organs; E87.1 Hypo-osmolality and hyponatremia; E78.5 Hyperlipidemia, unspecified; I25.10 Atherosclerotic heart disease of native coronary artery without angina pectoris; Z95.2 Presence of prosthetic heart valve; I95.9 Hypotension, unspecified; R65.20 Severe sepsis without septic shock; E87.6 Hypokalemia; Z95.1 Presence of aortocoronary bypass graft; Z88.6 Allergy status to analgesic agent; Z79.899 Other long term (current) drug therapy; Z79.02 Long term (current) use of antithrombotics/antiplatelets; Z79.52 Long term (current) use of systemic steroids; R33.9 Retention of urine, unspecified
CPT/HCPCS: 36415; 36556; 71045; 74177; 80048; 80053; 81003; 81015; 83605; 83690; 84153; 85025; 87040; 87077; 87086; 87186; 87804; 90471; 90662; 96361; 96365; 96367; 96374; 96375; G0008; J0696; J1650; J2001; J2185; J2270; J3370; J7050

== ENCOUNTER 2019-01-08 18:24 | Inpatient (IN) | payer OTHER ==
[~2019-01-08 18:24] MED LIST: ISOVUE-370 76%-LOCM 1 ML ONE
[2019-01-08 19:40] LABS: Base Excess-Venous -3.7 mmol/L (-2.0 to 3.0); Bicarbonate (HCO3v) 19.1 mmol/L (22.0-28.0); CO2 Tension (PvCO2) 28.1 mmHg (40.0-50.0); Calcium, Ionized 0.73 mmol/L (See Comments:); Chloride 99 mmol/L (98-107); Potassium 3.1 mmol/L (3.5-5.1); Sodium 133 mmol/L (138-145); T. Carbon Dioxide 19.9 mmol/L (22.0-28.0); vO2 Saturation-calc 80.5 % (60.0-85.0)
[2019-01-08 20:08] LABS: #Lymphocytes 1.2 thou/uL (1.20-3.40); #Monocytes 0.4 thou/uL (0.11-0.59); #Neutrophils 3.7 thou/uL (1.40-6.50); %Basophils 0.3 % (0.0-1.0); %Eosinophils 0.9 % (0.0-10.0); %Lymphocytes 23.2 % (21.0-51.0); %Monocytes 6.5 % (0.0-10.0); %Neutrophils 69.1 % (42.0-75.0); Hemoglobin 12.2 g/dL (14.0-18.0); Mean Corpuscular HGB CONC 32.8 g/dL (32.0-36.0); Mean Corpuscular Hemoglobin 28.6 pg (27.0-31.0); Mean Corpuscular Volume 87.2 fL (78.0-98.0); Mean Platelet Volume 10.4 fL (7.4-10.4); Platelet Count 67 thou/uL (130-400); Platelet Morphology Comment Appears Decreased; RBC Distribution Width 18.3 % (11.5-14.5); Red Blood Cell (RBC) Count 4.26 mill/uL (4.70-6.10); White Blood Cell (WBC) Count 5.4 thou/uL (4.8-10.8)
[2019-01-08 20:13] LABS: ALT (SGPT) 66 U/L (8-55); AST (SGOT) 295 U/L (5-34); Acetaminophen Less than 6.0 mcg/mL (10.0-30.0); Albumin 2.9 g/dL (3.4-4.8); Alcohol Less than 10 mg/dL (Less than 10); Alkaline Phosphatase 489 U/L (40-150); Anion Gap 17 mmol/L (10-20); BUN (Urea Nitrogen) 19 mg/dL (8.4-25.7); Calc. Creatinine Clearance 0 mL/min (70-130); Calcium 6.1 mg/dL (7.8-10.44); Carbon Dioxide 19 mmol/L (23-31); Chloride 99 mmol/L (98-107); Estimated GFR-MDRD Greater than 90; Globulin 3.1 g/dL (2.4-3.5); Glucose 82 mg/dL (83-110); Potassium 3.2 mmol/L (3.5-5.1); Salicylate Less than 8.0 mg/dL (15.0-30.0); Sodium 132 mmol/L (136-145)
--- NOTE | 2019-01-08 20:13 | ULT ---
EXAM: Right lower extremity venous duplex: Deep veins evaluated with color Doppler, spectral analysis, and compression. INDICATIONS: Right lower extremity pain and edema. FINDINGS: Deep veins interrogated include common femoral vein, femoral vein, popliteal vein, and post erior tibial vein. These veins show normal compression and blood flow. No evidence of DVT. IMPRESSION: Negative Right venous duplex exam.
--- NOTE | 2019-01-08 20:30 | RAD ---
CHEST ONE VIEW: 01/08/19 INDICATION: History of urinary retention, abdominal pain, leg swelling and back pain. COMPARISON: Prior exam dated 05/23/19. FINDINGS: Chronic lung changes are similar appearing. Midline sternotomy changes are stable. No definite pleura l effusion, pneumothorax is evident. No acute osseous abnormalities. IMPRESSION: No definite acute abnormality. POS: BH
[2019-01-08] MEDS ORDERED: Fentanyl 100 MCG/2 ML VIAL ONE (20:45)
[2019-01-08] MEDS ORDERED: Midazolam HCl 2 mg/2 ml Vial ONE (20:45)
[2019-01-08] MEDS ORDERED: Lidocaine 1% w/Epinephrine 1:100K 20 ML VIAL ONE (21:19)
[2019-01-08] MEDS ORDERED: Propofol 1,000 MG/100 ML VIAL IV ONE (21:19)
[2019-01-08] MEDS ORDERED: cefTRIAXone\\ROCEPHIN 2 GM VIAL ONE (21:19)
[2019-01-08] MEDS ORDERED: PROPOFOL 20 ML ONE (21:26)
--- NOTE | 2019-01-08 21:26 | CT ---
EXAM: Abdomen and pelvic CT scan with contrast: HISTORY: Emergency exam, pain COMPARISON: 05/23/2018 FINDINGS: There is emphysema of the imaged lung bases. Mild bilateral pleural fluid with adjacent atelectasis. Liver: Innumerable hepatic metastatic lesions, a significant interval detrimental change from compari son April 2018. Gallbladder: Contracted Pancreas: No significant interval change Spleen: Unremarkable. Adrenal glands: Unremarkable. Kidneys: Stable left renal cyst no new hydronephrosis Bowel: Incomplete assessment by absence of enteric contrast Urinary Bladder: The urinary bladder is unremarkable. Adenopathy: Numerous coalescent, heterogeneous, probably hypodense masses of the retroperitoneum are consistent with progressive retroperitoneal adenopathy. Exact size measurements are difficult due to coalescence and the configuration of these large lymph nodes which encase the aorta and additional , adjacent retroperitoneal structures. Additional scattered adenopathy of the abdomen and pelvis is also present. Free Air: No free air. Ascites: Mild scattered ascites Osseous structures: Redemonstration of scattered sclerotic lesions, throughout the imaged osseous str uctures IMPRESSION: Marked interval progression of metastatic disease, most significantly involving the liver. Transcribed Date/Time: 01/08/2019 9:43 PM
[2019-01-08 22:10] LABS: Bilirubin Large (Negative); Blood, Urine Large (Negative); Glucose, Urine (Dipstick) Negative (Negative); Leukocyte Negative (Negative); Nitrite Negative (Negative); Protein, Urine (Dipstick) 100 mg/dL (Neg-Trace)
[2019-01-08 22:13] LABS: Clarity Cloudy (Clear)
[2019-01-08 22:16] LABS: RBC/HPF Greater than 50 HPF (0-3)
[2019-01-08 22:17] LABS: Bacteria/HPF 2+ HPF (None Seen); Squamous Epithelial None Seen HPF (0-3)
[2019-01-08 22:20] LABS: Amphetamine Not Detected (NotDetected); Barbiturates Screen Not Detected (NotDetected); Benzodiazepine Screen Not Detected (NotDetected); Cocaine Metabolite Screen Not Detected (NotDetected); Medtox Control Line Valid? VALID (VALID); Medtox Reader # READER 1; Methadone Not Detected (NotDetected); Methamphetamine Not Detected (NotDetected); Opiate Screen Not Detected (NotDetected); Oxycodone Screen Not Detected (NotDetected); Phencyclidine (PCP) Not Detected (NotDetected); THC/Cannabinoid Screen Not Detected (NotDetected); Tricyclic Screen Not Detected (NotDetected)
[2019-01-08] MEDS ORDERED: Piperacillin/Tazobactam 4.5 GM VIAL ONE (22:21)
--- NOTE | 2019-01-08 23:00 | CON ---
DATE OF CONSULTATION: 01/08/2019 CONSULTING PHYSICIAN: Chan Solo MD REASON FOR CONSULTATION: Urinary retention with inability to pass catheter. HISTORY OF PRESENT ILLNESS: Mr. Colon is a 73 year old white male, who presented to the ER with complaints of abdominal pain, severe dysuria, generalized malaise , and inability to urinate. He is currently in care home and is generally cared for by oncologist at [facility] in [place]. He initially presented to the ER with these symptoms after I guess apparently the decision was made by the care home director medical that the patient needed to come into the emergency room. Upon arrival , it was determined the patient had urinary retention as he reported no urinations in the last 2 days other than just dribbling and incontinence. The nursing staff attempted multiple catheters, both coude and straight catheters without success. He began having some elements of hematuria, so they elected to call me instead. He does have a history significant for prostate cancer, which apparently was never treated primarily. He apparently had bone metastases at the time of diagnosis, which was sometime in 2017. He had been receiving care by an oncologist in [place] and getting Lupron injections. It is unclear when he had his last Lupron injection , but apparently the patient stopped going to get these Lupron injections for some time secondary to realizing that the disease would progress despite Lupron at some point. Approximately 1 to 2 weeks ago, he reported gross hematuria. Afterward, he began progressively getting dysuria. He reported that he did not really have any urinary difficulties prior to this, although after the hematuria started, he stated that he started having increasing difficulty with urination. Two days ago, he lost the ability to urinate altogether and began having severe dysuria approximately 12 hours or so before the cessation of urine occurred. He also stated that 3 days ago his legs started to swell significantly also. He denies any previous surgeries on his urethra, although he has had difficulty with catheter placements in the past when he was here previously for other reasons. On my discussion with the patient, he currently states that he is having strong urges to urinate without ability to do so. Once the spasms subside, he feels better. He does not report any fevers or chills, nausea or vomiting. He does have abdominal discomfort. He does report lower extremity swelling which is new for him. He reports that he has had urinary tract infections in the past. ALLERGIES: 1. ASPIRIN. 2. MUPIROCIN OINTMENT. CURRENT MEDICATIONS: The patient states he does not know his home medications. Per the last reported list on file, the patient apparently has been on; 1. Prednisone. 2. Flomax. 3. Ranitidine. 4. Lisinopril. 5. Lasix. 6. Plavix. 7. Calcium plus D. 8. Atorvastatin. 9. Amantadine. 10. Tylenol. PAST MEDICAL HISTORY: 1. Dyslipidemia. 2. Hypertension. 3. Coronary artery bypass grafting. 4. Aortic valve replacement. 5. Appendectomy. 6. Prostate cancer with metastasis. PAST SURGICAL HISTORY: As above. FAMILY HISTORY: Noncontributory. SOCIAL HISTORY: The patient reports significant alcohol abuse in the past until he was incarcerated at which time he no longer drinks. He no longer uses any illicit drugs. He denies tobacco abuse. REVIEW OF SYSTEMS: A 12-point review of systems reviewed and otherwise negative other than what was reported on the HPI. PHYSICAL EXAMINATION: VITAL SIGNS: Temperature 98.5, blood pressure 117/85, heart rate 109, respirations 20, saturation 95% on room air. GENERAL: Appears uncomfortable, but otherwise communicative and alert, appears older than stated age. HEENT: Normocephalic, atraumatic. Pupils are symmetric and round. Sclerae are nonicteric. Moist mucous membranes. Trachea midline. CARDIOVASCULAR: Regular rate and rhythm. Normal S1, S2 with murmur. Symmetric pulses. CHEST: Nonlabored breathing. Symmetric expansion of the lungs. No wheezes. ABDOMEN: Soft, nontender, and nondistended. Positive bowel sounds. There is hepatomegaly. Spleen is not palpable. There is an umbilical hernia present. Bladder is not entirely palpable. GENITOURINARY: There is erythema overlying the scrotum, likely from being in incontinence briefs. No other lesions. The patient appears to be uncircumcised , but he reports a previous circumcision. There is significant phimosis and adhesions of the skin to around the glans. The meatus can be visualized and is patent. RECTAL: Deferred at this time. EXTREMITIES: 3+ edema bilaterally with cyanosis and stasis dermatitis. Significant onychomycosis. SKIN: Warm and dry. Good turgor. No rashes or lesions other than what was commented on the lower extremities. MUSCULOSKELETAL: No obvious joint deformities or joint erythema noted. Range of motion could not fully be tested as the patient is currently in shackles. NEUROLOGIC: Cranial nerves 2 through 12 appear grossly intact. There are no obvious focal or sensory motor deficits identified. LYMPH: There are no supraclavicular, cervical, axillary, or inguinal lymph nodes palpable. PSYCHIATRIC: Alert and oriented x3. Appropriate mood and affect. LABORATORY EVALUATION: A full set of labs is in the [facility] system, which I have reviewed. Of note, the patient's white count is 5.4 with a hemoglobin of 12.2, platelet count of 67. Sodium is slightly low at 132, creatinine is 0.65. AST and ALT are elevated with significant elevations in alkaline phosphatase, low albumin. A UA has been sent after reported below procedure. CT with contrast demonstrates marked interval progression of metastatic disease most significantly involving the liver with an abnormal appearing prostate and significant progressive retroperitoneal lymphadenopathy. PROCEDURE NOTE: To place an 18-Greenlandic coude Brown catheter was attempted. The patient had significant pain and discomfort requiring sedatives and pain medication to be administered to even tolerate introducing the catheter through the urethra. He still had discomfort despite the pain medication and Versed. However, upon reaching the bulbar urethra, there appears to be a dense stricture. It feels hard and firm with the catheter resistance. Some manipulation was attempted, but nothing could get past this. The patient did endorse a lot of discomfort with this and I do not think he would be able to tolerate a dilation at bedside without being completely sedated. I discussed doing a suprapubic tube instead. Per his CT, there did not appear to be any bowel overlying the bladder. The patient agreed to do a suprapubic catheter after discussing risks and benefits. Risks include, but are not limited to, bowel injury, bladder injury, rectal injury, hematuria, worsening infection. He understands these risks and states he would be willing to proceed forward. These were discussed with the patient after some of the sedatives had worn off, but this was declared somewhat urgent to emergent and it would not be reasonable to wait significant amounts of time given that he is in retention and is uncomfortable. The patient's abdomen was then prepped with chlorhexidine and then infiltrated above the bladder with 1% lidocaine with epinephrine. Ultrasound was then used to evaluate the abdominal wall overlying the bladder. The patient was placed in Trendelenburg to ensure that all bowel contents had moved out of the way. There did not appear to be any overlying bowel contents. The Argillite Mallinckrodt SP tube introduction catheter with sharp trocar was used after a small incision was made in the site of the injection, which was 2 fingerbreadths above the pubic symphysis and the site of the Marcaine with an 11 blade. The catheter with trocar was introduced into this area and gently punctured through the anterior bladder wall. There was an immediate release of urine into the catheter. At which point, the sharp trocar was removed and the Mallinckrodt catheter advanced approximately an additional 2 cm into the bladder. At this point, the catheter was connected to a Brown gravity bag which drained approximately 900 mL of dark cola-colored urine. The catheter was then secured with a significant amount of tape on the patient's abdomen and down his right thigh. He tolerated the procedure very well with minimal pain or discomfort and stated he felt much better. ASSESSMENT AND PLAN: A 73-year-old white male with diffuse and progressive metastatic prostate cancer, now with metastasis to bone, retroperitoneal lymph nodes, and liver. This portends an extremely poor prognosis. If the patient is going to be treated, he probably would need aggressive treatment with chemotherapy, re-initiation of androgen deprivation and probably some additional antiandrogens. It probably would be a better option to consider hospice in this patient. Ultimately, he is being transferred down to [facility] in [place] due to multiple confounding variables including liver damage and progressive cancer. From my standpoint, I would leave the suprapubic catheter in for now. I would recommend giving the patient Rocephin to start him for presumptive urinary tract infection. Urine culture should be sent and the results forwarded to [facility] to guide antibiotic selection. He does not necessarily need followup with me in the office and we would recommend that he continue to receive urologic care through the [facility] or [facility]. Job ID: [id number] [facility]
--- NOTE | 2019-01-08 23:05 | ULT ---
Gallbladder ultrasound: Multiple grayscale images of right upper quadrant obtained according to protocol. INDICATION: Pain FINDINGS: Liver: Numerous hepatic masses related to metastatic disease Gallbladder: The gallbladder is mildly contracted. Gallbladder wall: Thickened, measuring 6 mm. Lancaster's Sign: Negative Common bile duct is normal. Ascites: Mild IMPRESSION: 1. Hepatic metastases. 2. Thickened gallbladder wall. Correlate for evidence of cholecystitis. 3. Mild ascites.
[2019-01-08 23:57] LABS: Lactic Acid 2.9 mmol/L (0.5-2.2)
[2019-01-09] MEDS ORDERED: MEROPENEM 1 GM/50 ML 1 GM in Premix Bag 1 BAG IVPB SCH (00:15)
[2019-01-09 01:05] LABS: Troponin I 0.037 ng/mL (< 0.028)
[2019-01-09] MEDS ORDERED: Acetaminophen 325 MG TAB PO PRN (01:31)
[2019-01-09 02:29] LABS: #Eosinphils 0.1 thou/uL (0.0-0.7); #Lymphocytes 1.1 thou/uL (1.20-3.40); #Monocytes 0.4 thou/uL (0.11-0.59); %Basophils 0.5 % (0.0-1.0); %Eosinophils 1.2 % (0.0-10.0); %Lymphocytes 22.8 % (21.0-51.0); %Monocytes 9.4 % (0.0-10.0); %Neutrophils 66.2 % (42.0-75.0); Mean Corpuscular HGB CONC 32.4 g/dL (32.0-36.0); Mean Corpuscular Hemoglobin 28.3 pg (27.0-31.0); Mean Corpuscular Volume 87.6 fL (78.0-98.0); Mean Platelet Volume 9.7 fL (7.4-10.4); Platelet Count 45 thou/uL (130-400); RBC Distribution Width 18.4 % (11.5-14.5); Red Blood Cell (RBC) Count 4.22 mill/uL (4.70-6.10); White Blood Cell (WBC) Count 4.6 thou/uL (4.8-10.8)
[2019-01-09 02:55] LABS: INR-International Normal Ratio 1.6
[2019-01-09 02:56] LABS: PTT 43.1 SEC (22.9-36.1)
[2019-01-09 03:13] LABS: ALT (SGPT) 56 U/L (8-55); AST (SGOT) 246 U/L (5-34); Albumin 2.5 g/dL (3.4-4.8); Alkaline Phosphatase 403 U/L (40-150); Anion Gap 18 mmol/L (10-20); BUN (Urea Nitrogen) 17 mg/dL (8.4-25.7); Bilirubin, Total 4.5 mg/dL (0.2-1.2); Calc. Creatinine Clearance 118 mL/min (70-130); Carbon Dioxide 17 mmol/L (23-31); Chloride 104 mmol/L (98-107); Estimated GFR-MDRD Greater than 90; Globulin 2.7 g/dL (2.4-3.5); Glucose 70 mg/dL (83-110); Potassium 3.2 mmol/L (3.5-5.1); Protein, Total 5.2 g/dL (5.8-8.1); Sodium 136 mmol/L (136-145)
[2019-01-09 03:19] LABS: Calcium 5.5 mg/dL (7.8-10.44)
[2019-01-09 03:53] LABS: Hep C IgG Ab Non-Reactive (NonReactive); Hep C Index 0.11 S/CO (0-0.79)
[2019-01-09 03:54] LABS: HBCM Index 0.07 S/CO (0-0.79); Hep A IgM AB Non-Reactive (NonReactive); Hep A IgM S/CO 0.12 S/CO (0-0.79); Hepatitis B Core IgM Abs Non-Reactive (NonReactive)
[2019-01-09 03:55] LABS: HBSAg Index 0.28 S/CO (0-0.99); Hep B Surf Ag Non-Reactive S/CO (NonReactive)
[2019-01-09] MEDS ORDERED: Calcium Gluconate 4.6 MEQ in Sodium Chloride 0.9% 100 ML IVPB SCH (04:00)
[2019-01-09] MEDS: Morphine 4 MG/ML VIAL SLOW IVP PRN ×3 (04:53→16:43)
[2019-01-09] MEDS ORDERED: Potassium Chloride 20 MEQ in Premix Bag 1 BAG IVPB SCH (05:15)
[2019-01-09] MEDS ORDERED: Potassium Chloride 20 MEQ TAB PO SCH (05:15)
--- NOTE | 2019-01-09 05:37 | HP ---
CHIEF COMPLAINT: Urinary urgency and pain and dysuria. HISTORY OF PRESENT ILLNESS: Patient is a 73-year-old male with a history of prostate cancer, who presents to the hospital with complaints of severe dysuria, generalized malaise, abdominal pain, and inability to urinate for the past few days. Patient stated that he normally follows up with his oncologist at [facility] in [place]. However, since there were no beds, he presented here. Patient states that for the past couple of days, he has been having significant pain upon urination and has not been able to have a good stream and has been having significant amount of dribbling. At this time, he was brought into the hospital. Multiple catheter attempts were made without any success at this time. Urology was consulted and the patient has been inserted a suprapubic catheter. Patient apparently gets Lupron injection at [facility]. Patient states that every time he tried to urinate, he felt significant amount of pain on his chest area. This was on his left chest wall area and he was able to pinpoint the pain. PAST MEDICAL HISTORY: As of the following. 1. Dyslipidemia. 2. Hypertension. 3. CAD. 4. Aortic valve replacement. 5. Prostate cancer. PAST SURGICAL HISTORY: He has had appendectomy. He has had a CABG and aortic valve replacement. FAMILY HISTORY: No history of heart disease or stroke. Mother had bone cancer. ALLERGIES: ASPIRIN AND MUPIROCIN. SOCIAL HISTORY: Patient lives in care home. No alcohol use or drug use. No smoking history. He is currently a full code. States he wants to live to meet his daughter. MEDICATIONS: 1. He is on Plavix. 2. Lasix. 3. Lisinopril. 4. Atorvastatin. 5. Ranitidine. 6. Calcium. Patient does state that he has not been given some of his medications for the past few days. I am not sure of how true that is. PHYSICAL EXAMINATION: VITAL SIGNS: Vital signs are as of the following; temperature 97.7, 103, 20, 98% on 2 L, and 115/58. GENERAL: He is awake, alert, and oriented x3. Does not appear in distress. HEENT: Normocephalic and atraumatic. No lymphadenopathy noted. Pupils are equal and reactive to light. CV: S1 and S2 present. No murmurs, rubs, or gallops. LUNGS: Clear to auscultation. No rhonchi or wheezes noted. ABDOMEN: Obese. Bowel sounds present x2. He does have significant abdominal wall edema. No pain upon palpation to his right upper quadrant. EXTREMITIES: Significant edema, right greater than left, pitting. NEUROVASCULAR: Otherwise, no focal deficits noted. SKIN: No cuts, lesions, or bruises noted. LABORATORY RESULTS: As of the following; WBCs of 4.6, hemoglobin of 12.0, hematocrit of 36.9, and platelets of 45. Chemistry; sodium of 136, potassium of 3.2, BUN of 17, creatinine 0.65, and his calcium was 5.5. His lactic acid was 2.9. His AST is 246, ALT is , alkaline phosphatase is 403, total bili is 4.5, his direct bili is 2.9. His troponins were mildly elevated at 0.03. He did have an abdominal ultrasound, chest x-ray, and a right lower extremity Doppler. The right ultrasound indicated hepatic metastasis, thickened gallbladder, and mild ascites. He also had a chest x-ray done, which indicated no acute abnormalities. He did have a vascular ultrasound done which did not indicate any lower extremity DVT. ASSESSMENT AND PLAN: Patient is a 73-year-old male who presents to the hospital with dysuria. 1. Urinary retention. Patient is status post suprapubic catheter. We will continue his home medications. Patient states he has never had radiation. He has only been on Lupron injections. Urology has been following him. Upon reviewing his previous records, it was noted that patient has metastatic prostate cancer. He did have some bilateral iliac chain lymphadenopathy and retroperitoneal lymphadenopathy. His previous scans did not indicate any hepatic metastasis. However, current scan indicates significant hepatic metastasis and he has significantly elevated LFTs with bilirubin. We will check a coagulation panel which also indicates elevated PT and PTT. Again, we will get Oncology to come and see him. I am not sure how much more will be done for this gentleman. He has significant liver metastatic lesions. 2. Low calcium. I will check an ionized calcium and give patient calcium gluconate x1. 3. Urinary tract infection. Patient's urine indicated leukocyte esterase was negative. His wbc's were 4 to 6. I will start him on some ceftriaxone. Initially, he was given meropenem. However, I believe ceftriaxone or maybe just Zosyn would be sufficient for this patient for now. I will also consult Palliative Care to come by and see this patient. 4. Deep venous thrombosis prophylaxis. I am unable to give him any subcu heparin or Lovenox due to his low platelets. We will get Physical Therapy to see if we can ambulate the patient. 5. Patient's overall prognosis is very poor. I will also continue to trend his troponins as his troponin did have a mild bump and we will continue to monitor. Job ID: [id number]
[2019-01-09] MEDS: Atorvastatin Calcium 40 MG TAB PO SCH (08:42)
[2019-01-09] MEDS: Amantadine HCl 100 mg Capsule PO SCH ×2 (08:42→22:37)
[2019-01-09] MEDS: Potassium Chloride 20 MEQ TAB PO SCH ×2 (08:42→16:42)
[2019-01-09 08:44] LABS: Troponin I Less than 0.010 ng/mL (< 0.028)
[2019-01-09] MEDS: Famotidine/PF 20 mg/2ml Vial SLOW IVP SCH ×2 (08:47→22:03)
[2019-01-09] MEDS ORDERED: Non-Formulary Item 1 EACH (Ranitidine Hcl [Ranitidine Hcl] 150 MG) PO SCH (09:00)
[2019-01-09] MEDS ORDERED: Magnesium Sulfate 3 GM in Sodium Chloride 0.9% 100 ML IVPB SCH (12:30)
[2019-01-09] MEDS ORDERED: Calcium Gluc 4.6 MEQ/10 ML (100 MG/ML) SLOW IVP ONE (12:47)
[2019-01-09 14:29] LABS: Anion Gap 16 mmol/L (10-20); BUN (Urea Nitrogen) 15 mg/dL (8.4-25.7); Calc. Creatinine Clearance 123 mL/min (70-130); Calcium 6.1 mg/dL (7.8-10.44); Carbon Dioxide 17 mmol/L (23-31); Chloride 103 mmol/L (98-107); Estimated GFR-MDRD Greater than 90; Glucose 92 mg/dL (83-110); Potassium 3.9 mmol/L (3.5-5.1); Sodium 132 mmol/L (136-145)
--- NOTE | 2019-01-09 14:35 | PRG ---
DATE OF SERVICE: SUBJECTIVE: The patient is seen and examined at the bedside. He feels tired and sick. He has pain in his liver and bones. OBJECTIVE: VITAL SIGNS: Blood pressure is 122/57, pulse is 98, temperature is 98.4, respirations 19, O2 saturation is 96% on room air. HEAD: Atraumatic and normocephalic. SKIN: Palish. HEENT: Pupils responding to light properly. Sclerae are nonicteric. Oral mucosa is somewhat dry. NECK: Supple. LUNGS: Clear. HEART: S1 and S2 distant. No S3. No S4. ABDOMEN: Soft. There is some tenderness in the epigastric area on deeper palpation. EXTREMITIES: No clubbing, cyanosis, or edema. NEUROLOGICAL: He follows my commands. He moves his all 4 extremities. He has a suprapubic catheter in place. LABORATORY DATA: Labs showed a white count of 4.6, hemoglobin 12.0, hematocrit 36.5, and platelet count is 45,000. INR 1.6, PT of 19.0. Sodium of 136, potassium 3.2, chloride 104, CO2 of 17, BUN 17, creatinine 0.65, glucose 70, calcium 5.5, magnesium 1.1. Liver function test elevated. Total bilirubin 4.5, AST of 246, ALT 56, and alkaline phosphatase 403. Hepatitis, acute infection testing negative. Microbiology 1/2 blood cultures, gram-positive cocci. Urine culture negative. IMPRESSION: 1. Urinary retention status post suprapubic catheter placement by urologist. The patient has a history of prostate cancer with metastasis. He has bilateral iliac chain lymphadenopathy and retroperitoneal lymphadenopathy. Urologist recommends to follow up with urologist in [place], where he used to go for his Lupron treatments. 2. Hypocalcemia. Ionized calcium was sent out and he received 1 dose of calcium gluconate. We are going to repeat the dose x1 and check the levels. 3. 1/2 blood cultures positive. We will have coverage with vancomycin and ceftriaxone, and will follow the blood cultures. 4. Do not resuscitate status per the patient's wishes. 5. Hypomagnesemia. We will transfuse 3 g of magnesium and we will obtain an Oncology consult. His aortic valve replacement history and coronary artery disease history, but those are stable. Restart his Cymbalta and clopidogrel and I am not sure why he is taking prednisone, but this is most likely to control his pain in bones. Job ID: [id number]
[2019-01-09] MEDS: Calcium Carbonate + Vit D 1 TAB PO SCH ×2 (16:41→22:03)
[2019-01-09] MEDS: predniSONE 5 MG TAB PO SCH (16:42)
[2019-01-09] MEDS: cefTRIAXone\\ROCEPHIN 1 GM in Sodium Chloride 0.9% 100 ML IVPB SCH (22:02)
[2019-01-09] MEDS: Vancomycin HCl 1 GM in Premix Bag 1 BAG IVPB SCH (22:02)
[2019-01-09] MEDS: Tamsulosin HCl 0.4 MG CAP PO SCH (22:03)
[2019-01-10] MEDS: Vancomycin HCl 1 GM in Premix Bag 1 BAG IVPB SCH ×2 (08:37→22:05)
[2019-01-10] MEDS: Clopidogrel Bisulfate 75 MG TAB PO SCH (08:38)
[2019-01-10] MEDS: Amantadine HCl 100 mg Capsule PO SCH ×2 (08:38→22:07)
[2019-01-10] MEDS: predniSONE 5 MG TAB PO SCH ×2 (08:38→16:00)
[2019-01-10] MEDS: Atorvastatin Calcium 40 MG TAB PO SCH (08:38)
[2019-01-10] MEDS: Potassium Chloride 20 MEQ TAB PO SCH (08:38)
[2019-01-10] MEDS: Famotidine/PF 20 mg/2ml Vial SLOW IVP SCH ×2 (08:38→22:06)
[2019-01-10] MEDS: Calcium Carbonate + Vit D 1 TAB PO SCH ×3 (08:38→22:07)
[2019-01-10] MEDS ORDERED: Bicalutamide 50 MG TAB PO SCH (12:00)
[2019-01-10 12:13] LABS: Hemoglobin 10.7 g/dL (14.0-18.0); Mean Corpuscular HGB CONC 33.9 g/dL (32.0-36.0); Mean Corpuscular Hemoglobin 29.5 pg (27.0-31.0); Mean Corpuscular Volume 87.1 fL (78.0-98.0); RBC Distribution Width 18.6 % (11.5-14.5); Red Blood Cell (RBC) Count 3.63 mill/uL (4.70-6.10)
[2019-01-10 12:30] LABS: Anion Gap 15 mmol/L (10-20); BUN (Urea Nitrogen) 15 mg/dL (8.4-25.7); Calc. Creatinine Clearance 128 mL/min (70-130); Carbon Dioxide 17 mmol/L (23-31); Chloride 102 mmol/L (98-107); Estimated GFR-MDRD Greater than 90; Glucose 155 mg/dL (83-110); Magnesium 1.8 mg/dL (1.6-2.6); Potassium 4.3 mmol/L (3.5-5.1); Sodium 130 mmol/L (136-145)
[2019-01-10 12:31] LABS: Hypochromia SLIGHT = 6-15 cells (100X) (0-5/hpf); Lymphocytes 20 % (21-51); MDiff Complete? YES; Mean Platelet Volume 10.1 fL (7.4-10.4); Monocytes 10 % (0-10); Neutrophil 70 % (42-75); Platelet Count 53 thou/uL (130-400); Platelet Morphology Comment Appears Decreased; Polychromasia SLIGHT = 2-3 cells (100X) (0-2/hpf); White Blood Cell (WBC) Count 4.7 thou/uL (4.8-10.8)
[2019-01-10 12:35] LABS: Calcium 5.9 mg/dL (7.8-10.44)
[2019-01-10] MEDS ORDERED: Calcium Gluc 4.6 MEQ/10 ML (100 MG/ML) SLOW IVP SCH (12:39)
[2019-01-10] MEDS: Morphine 4 MG/ML VIAL SLOW IVP PRN ×2 (12:42→23:37)
--- NOTE | 2019-01-10 12:53 | CON ---
DATE OF CONSULTATION: REASON FOR CONSULTATION: Prostate cancer. HISTORY OF PRESENT ILLNESS: A 73-year-old male with history of metastatic prostate cancer to bone, presenting to the hospital with severe dysuria, abdominal pain, and inability to urinate for several days. The patient is currently incarcerated and follows with an oncologist at [facility] in [place]. Since admission, the patient did have a catheter placed by Dr. Solo with dramatic improvement in his abdominal pain. On admission, the patient had a CT of the abdomen and pelvis, which showed scattered sclerotic lesions and innumerable hepatic metastatic lesions, which is a dramatic change since prior scan in April 2018. In April 2018, his PSA was 37. The patient's bilirubin is 4.5, direct bilirubin 2.9, AST 246, ALT 56, and alkaline phosphatase 403. The patient has been receiving Lupron from his other oncologist and states he believes he last got it 2 months ago. I discussed the prognosis of metastatic prostate cancer with the patient and given his liver disease and elevated LFTs, he is not a candidate for chemotherapy with Taxotere. He also is not a candidate for Zytiga. He might be a candidate for either Casodex or Xtandi, which would be reasonably well-tolerated with limited risks and maybe able to shrink and control his disease for some time. He would like to try this option and I will plan to start him on Casodex at this time. I would prefer Xtandi; however, we will not be able to get this in the hospital, so hopefully he can start this instead of Casodex once he is discharged back to his oncologist in [place]. REVIEW OF SYSTEMS: Ten-point review of systems is negative, except as per HPI. PAST MEDICAL HISTORY: Hyperlipidemia, hypertension, CAD, metastatic prostate cancer, AV replacement. PAST SURGICAL HISTORY: Appendectomy, CABG, AV replacement. FAMILY HISTORY: Bone cancer in his mother. ALLERGIES: ASPIRIN, MUPIROCIN. SOCIAL HISTORY: No alcohol, drugs, or smoking. He is currently in senior living. CURRENT MEDICATIONS: Reviewed. PHYSICAL EXAMINATION: VITAL SIGNS: Temperature 97.9, pulse 104, respirations 20, saturating 94% on room air, blood pressure 118/59. GENERAL APPEARANCE: The patient is lying in bed, in no acute distress. HEENT: Normocephalic, atraumatic. CARDIOVASCULAR: S1 and S2. LUNGS: Clear to auscultation. ABDOMEN: No significant abdominal tenderness. EXTREMITIES: Bilateral lower extremity edema. : Catheter in place draining red fluid. NEUROLOGIC: Cranial nerves 2 through 12 are grossly intact. PSYCHIATRIC: The patient is awake, alert, and oriented x3. LABORATORY DATA: White blood cells 4.6, hemoglobin 12.0, platelets 45. Sodium 132, BUN 15, creatinine 0.62, calcium 6.1, albumin of 2.5, ionized calcium 0.73, total bilirubin 4.5, direct bilirubin 2.9, AST 246, ALT 56, alkaline phosphatase 403, albumin 2.5. Vitamin D less than 3.4. ASSESSMENT AND PLAN: A 73-year-old male with metastatic prostate cancer to bone and liver presenting with outlet obstruction, status post catheterization by Dr. Solo with resolution of abdominal pain. The patient is currently on Lupron with his outside oncologist for treatment of his metastatic prostate cancer; however, he is having progression. At this time due to extent of liver disease and liver function test, he is not a candidate for either Taxotere or Zytiga; however, he is a candidate for Casodex or Xtandi. I have discussed the options with him and he does not prefer hospice at this time and prefers to give one of the pills a try. We will start him on Casodex now, pending transfer or release and would recommend that he start Xtandi instead of Casodex once he is discharged. He should also continue on Lupron and should be receiving Zometa or Xgeva on an ongoing basis as well if he is not. Thank you for this consult. Job ID: [id number]
[2019-01-10] MEDS ORDERED: Ergocalciferol 1.25 MG(50,000 UNITS) CAP PO SCH (13:15)
--- NOTE | 2019-01-10 14:21 | PRG ---
DATE OF SERVICE: 01/10/2019 SUBJECTIVE: The patient is seen and examined at the bedside. He is feeling somewhat better since he is able to through the suprapubic catheter. His appetite is fair. OBJECTIVE: VITAL SIGNS: Blood pressure is 122/58, pulse is 104, respiratory rate is 20, O2 saturation is 95% on room air. His temperature is 98.1. SKIN: Looks palish amin. HEENT: Conjunctivae palish. Sclerae nonicteric. Oral mucosa is moist. NECK: Supple. LUNGS: Diminished at both bases. HEART: S1 and S2. Tachycardic. No S3. No S4. ABDOMEN: Soft, mildly distended on deeper palpation. There is soreness in the right upper quadrant. No guarding. No masses. EXTREMITIES: No clubbing, cyanosis, or edema. NEUROLOGIC: He follows my commands. He moves his all 4 extremities. He has plastic cuffs on hands and feet. LABORATORY DATA: Labs showed white count of 4.7, hemoglobin of 10.7, hematocrit 31.6, RDW 18.6. Sodium of 130, potassium 4.3, chloride 102, CO2 of 17, BUN 15, creatinine 0.83, glucose 155, calcium 5.9, magnesium 1.8, vitamin D3 less than 3.4. Microbiology, 1/2 blood cultures came back positive for Micrococcus species, which is most likely contaminant and urine culture came back negative so far. IMPRESSION: 1. Urinary retention, status post suprapubic catheter placement by Dr. Solo. 2. Hypocalcemia, most likely related to vitamin D deficiency. We will start him on 50,000 units of vitamin D today. 3. 1/2 blood cultures positive for Micrococcus. The patient is on vancomycin and ceftriaxone, but this is most likely contaminant and the patient's white count is 4.7. We will keep him on 2 antibiotics for additional day, and we will stop both of them if the cultures are confirmed to be negative. 4. Hypomagnesemia, corrected. 5. Prostate cancer with metastasis to the bones and liver. The patient was seen by Dr. Dickerson for Oncology evaluation. He recommends to use Casodex and Zometa or Xgeva after the patient's calcium is corrected. So, plan is continue antibiotics, on Casodex. Correct his calcium. Correct his vitamin D deficiency. most likely related to prostate cancer with metastasis. The patient will stay deep on DNR status while in the hospital. He will continue his Lupron injections after his discharge from the hospital. Job ID: [id number]
[2019-01-10] MEDS: cefTRIAXone\\ROCEPHIN 1 GM in Sodium Chloride 0.9% 100 ML IVPB SCH (22:06)
[2019-01-10] MEDS: Tamsulosin HCl 0.4 MG CAP PO SCH (22:07)
[2019-01-11 05:38] LABS: Anion Gap 14 mmol/L (10-20); BUN (Urea Nitrogen) 17 mg/dL (8.4-25.7); Calc. Creatinine Clearance 126 mL/min (70-130); Calcium 6.3 mg/dL (7.8-10.44); Carbon Dioxide 19 mmol/L (23-31); Chloride 105 mmol/L (98-107); Estimated GFR-MDRD Greater than 90; Glucose 110 mg/dL (83-110); Magnesium 1.8 mg/dL (1.6-2.6); Potassium 4.9 mmol/L (3.5-5.1); Sodium 133 mmol/L (136-145)
[2019-01-11 05:58] LABS: Band 11 % (5-11); Eosinophils 1 % (0-10); Hemoglobin 10.7 g/dL (14.0-18.0); Lymphocytes 23 % (21-51); MDiff Complete? YES; Mean Corpuscular HGB CONC 32.4 g/dL (32.0-36.0); Mean Corpuscular Hemoglobin 28.2 pg (27.0-31.0); Mean Corpuscular Volume 87.1 fL (78.0-98.0); Monocytes 2 % (0-10); Myelocyte 1 % (0-0); Neutrophil 61 % (42-75); Nucleated RBC 1 % (0); Platelet Count 50 thou/uL (130-400); Platelet Morphology Comment Appears Decreased; RBC Distribution Width 18.9 % (11.5-14.5); White Blood Cell (WBC) Count 4.6 thou/uL (4.8-10.8)
[2019-01-11] MEDS: predniSONE 5 MG TAB PO SCH ×2 (08:18→16:53)
[2019-01-11] MEDS: Atorvastatin Calcium 40 MG TAB PO SCH (08:18)
[2019-01-11] MEDS: Clopidogrel Bisulfate 75 MG TAB PO SCH (08:18)
[2019-01-11] MEDS: Calcium Carbonate + Vit D 1 TAB PO SCH ×3 (08:18→21:02)
[2019-01-11] MEDS: Famotidine/PF 20 mg/2ml Vial SLOW IVP SCH ×2 (08:19→21:02)
[2019-01-11] MEDS: Vancomycin HCl 1 GM in Premix Bag 1 BAG IVPB SCH (08:19)
[2019-01-11] MEDS: oxyCODONE 5 MG TAB PO PRN ×2 (09:46→21:08)
[2019-01-11] MEDS: Bicalutamide 50 MG TAB PO SCH (09:47)
[2019-01-11] MEDS: Amantadine HCl 100 mg Capsule PO SCH ×2 (09:48→21:02)
--- NOTE | 2019-01-11 10:50 | PQF ---
CLINICAL DOCUMENTATION IMPROVEMENT CLARIFICATION FORM: ICD-10 Updated PLEASE DO AN ADDENDUM TO THE PROGRESS NOTE WITH ANY DOCUMENTATION UPDATES OR ADDITIONS AND CARRY THROUGH TO DC SUMMARY. THANK YOU. DATE: 01/15/19 ATTN: DR. ELIZONDO Please exercise your independent, professional judgment in responding to the clarification form. Clinical indicators are provided on the bottom of this form for your review Please check appropriate box(es): [ ] Sepsis due to: (Pna, UTI, gangrenous gall bladder, etc.) Due to: [ ] Device (please specify) [ ] Implant [ ] Graft [ ] Infusion [ ] SIRS due to non-infectious process (please specify etiology) [ ] with organ dysfunction [ ] without organ dysfunction [ x ] Severe sepsis with acute organ dysfunction of: (Examples: respiratory failure, encephalopathy, acute kidney failure, other) [ ] Septic Shock [ ] Localized infection without sepsis [ ] Other diagnosis [ ] Unable to determine In addition, please specify: Present on Admission (POA): [ x ] Yes [ ] No [ ] Unable to determine For continuity of documentation, please document condition throughout progress notes and discharge summary. Thank You. CLINICAL INDICATORS - SIGNS / SYMPTOMS / LABS LACTIC ACID 2.9 PULSE 113 RR 25 RISKS: UTI TREATMENT: IV MERREM (ER) IV FLUID (ER) IV ZOSYN (ER) IV ROCEPHIN (ER-PRESENT) IV VANCOMYCIN (01/09-01/11) FLOMAX (01/09-PRESENT) URINE CULTURE BLOOD CULTURES [facility] Chief Crystal Reports Winform Viewer (This form is maintained as a part of the permanent medical record) 2014 [employer]. All Rights Reserved DEMETRICE [email or web address] Office: [phone] [facility]
[2019-01-11] MEDS ORDERED: Ergocalciferol 1.25 MG(50,000 UNITS) CAP PO SCH (13:30)
--- NOTE | 2019-01-11 13:52 | PRG ---
DATE OF SERVICE: 01/11/2019 SUBJECTIVE: The patient is seen and examined at the bedside. He seems to be doing somewhat better. He is tolerating food without any major problems. OBJECTIVE: VITAL SIGNS: Blood pressure is 120/58, pulse is 98, respiratory rate is 18, O2 saturation is 94%, temperature is 97.8. He is on room air. SKIN: Palish. HEENT: Oral mucosa is moist. NECK: Supple. LUNGS: Breath sounds diminished at both bases. HEART: S1 and S2, somewhat irregular. No S3. No S4. ABDOMEN: Soft, nontender. The suprapubic catheter is in place. EXTREMITIES: 2 to 3+ peripheral edema present. NEUROLOGICAL: He is alert and oriented x4. There are no any motor or sensory deficits. LABORATORY DATA: Labs showed white count of 4.6, hemoglobin 10.7, hematocrit 33.1, platelet count is 50. Sodium of 133, potassium 4.9, chloride 105, CO2 of 19, BUN 17, creatinine 0.64, calcium 8.3, magnesium 1.8. PSA 1751.79. Vitamin D3 less than 3.4. Microbiology, 1 out of 2 cultures of blood came back positive for Micrococcus, which is contamination; and urine culture within normal limits. IMPRESSION: 1. Urinary retention, status post suprapubic catheter placement. There is some bloodish urine. We are going to try to flush it. 2. Hypocalcemia, most likely related to vitamin D deficiency. The patient received 50,000 units of vitamin D today. I am going to repeat the dose tomorrow. 3. Hypomagnesemia, corrected. 4. Peripheral swelling. We will start him on Lasix 40 mg p.o. times once a day. PLAN: Plan is to start him on Zometa later when his hypocalcemia is improved, and oncologist is going to start him on Casodex, and continue with Lupron as he was taking before. I am going to stop his vancomycin because there is no evidence that he is having some kind of infection and I am going to stop his Rocephin too, and probably he can go back to the place where he came from, [facility] after his electrolytes are corrected and he can follow up with his urologist later after the discharge. He needs to be on vitamin D3 big doses, probably 50,000 units every other day for some times before he is going to be switched to smaller doses since he is severely depleted. Job ID: [id number]
[2019-01-11] MEDS ORDERED: Furosemide 40 MG TAB PO SCH (14:00)
--- NOTE | 2019-01-11 14:30 | PDOC.PALCO ---
Palliative Care Consult - Consult Details Requesting Physician: Dr Coyle Reason for Consult: goals of care - Pertinent HPI History of prostate cancer, who came to the hospital secondary to dysuria, fatigue, abdominal pain and inability to urinate. Patient usually seen at [facility] for oncology related to prostate cancer. - Pertinent PMH Hyperlipidemia, hypertension, CAD, Aortic Valve replacement, Prostate cancer. - Social History Alcohol Use: none Drug Use History: none Living Situation: in custody - Medications MAR Reviewed: Yes - Allergies Allergies/Adverse Reactions: Allergies Allergy/AdvReac Type Severity Reaction Status Date / Time aspirin Allergy Rash Verified 01/09/19 02:44 mupirocin [From Bactroban] Allergy Hives Verified 01/09/19 02:44 - Subjective In bed, awake alert with two law enforcement at bedside. Patient suprapubic draining dark yellow urine. States he only had back, chest and leg pain. Reviewed medications and teaching in relation to patient medications and that there are several ordered PRN for the pain he described, encouraged patient to ask for pain medication when pain increases. - Objective Vital Signs: Vital Signs - Most Recent Temp Pulse Resp BP Pulse Ox 97.7 F 103 H 18 115/70 97 01/11/19 14:15 01/11/19 14:15 01/11/19 14:15 01/11/19 14:15 01/11/19 14:15 Palliative Performance Scale: 50 - Physical Exam Constitutional: NAD HEENT: moist MMs, EOMI Respiratory: unlabored breathing, wheezing present Cardiovascular: RRR Deviation from normal: mildly distended, nontender Musculoskeletal: edema present Deviation from normal: pitting jonny to lower extremities bilaterally Deviation from normal: neuropathy to feet bilaterally Psychiatric: normal affect - Problem List (1) Palliative care encounter Code(s): Z51.5 - ENCOUNTER FOR PALLIATIVE CARE Current Visit: Yes Status: Acute - Plan/Recommendations Plan:Mr Colon states he wanted to peruse chemo, will consider Palliative/ hospice options in the future. Patient resides in a correctional facility, goal is to see his daughter prior to his . Will have further conversation to identify if there is a means for Palliative Care team to facilitate his seeing his daughter. *Patient expressed pain, has not utilized all of the PRN pain medications, teaching with patient on requesting pain medications when needed. *Identify if Palliative care can assist/facilitate communication with patient seeing his daughter. *Continue with Chemo/Hospice if cancer progresses or not responsive to current chemo regime Thank you for the consult, Ketty Townsend RNspray booth operator will continue to follow and I will assist as needed. [40] minutes spent on this encounter with >50% of the time in counseling and coordination of care. Thank you for this very appropriate consult.
[2019-01-11] MEDS: Morphine 4 MG/ML VIAL SLOW IVP PRN (14:57)
[2019-01-11] MEDS: Tamsulosin HCl 0.4 MG CAP PO SCH (21:02)
[2019-01-12] MEDS: Morphine 4 MG/ML VIAL SLOW IVP PRN (05:20)
[2019-01-12 05:44] LABS: #Eosinphils 0.1 thou/uL (0.0-0.7); #Lymphocytes 1.2 thou/uL (1.20-3.40); #Monocytes 0.3 thou/uL (0.11-0.59); #Neutrophils 2.9 thou/uL (1.40-6.50); %Basophils 0.3 % (0.0-1.0); %Eosinophils 1.6 % (0.0-10.0); %Lymphocytes 26.4 % (21.0-51.0); %Monocytes 7.6 % (0.0-10.0); Hemoglobin 10.5 g/dL (14.0-18.0); Mean Corpuscular HGB CONC 32.2 g/dL (32.0-36.0); Mean Corpuscular Hemoglobin 28.3 pg (27.0-31.0); Mean Corpuscular Volume 87.9 fL (78.0-98.0); Mean Platelet Volume 9.5 fL (7.4-10.4); Platelet Count 61 thou/uL (130-400); RBC Distribution Width 19.2 % (11.5-14.5); Red Blood Cell (RBC) Count 3.71 mill/uL (4.70-6.10); White Blood Cell (WBC) Count 4.5 thou/uL (4.8-10.8)
[2019-01-12 05:57] LABS: Anion Gap 11 mmol/L (10-20); BUN (Urea Nitrogen) 14 mg/dL (8.4-25.7); Calc. Creatinine Clearance 122 mL/min (70-130); Calcium 6.2 mg/dL (7.8-10.44); Carbon Dioxide 23 mmol/L (23-31); Chloride 100 mmol/L (98-107); Estimated GFR-MDRD Greater than 90; Glucose 85 mg/dL (83-110); Magnesium 1.2 mg/dL (1.6-2.6); Potassium 3.3 mmol/L (3.5-5.1); Sodium 131 mmol/L (136-145)
[2019-01-12] MEDS: Furosemide 40 MG TAB PO SCH (08:11)
[2019-01-12] MEDS: predniSONE 5 MG TAB PO SCH ×2 (08:11→16:09)
[2019-01-12] MEDS: Calcium Carbonate + Vit D 1 TAB PO SCH ×3 (08:12→20:00)
[2019-01-12] MEDS: Clopidogrel Bisulfate 75 MG TAB PO SCH (08:12)
[2019-01-12] MEDS: Atorvastatin Calcium 40 MG TAB PO SCH (08:13)
[2019-01-12] MEDS: Famotidine/PF 20 mg/2ml Vial SLOW IVP SCH ×2 (08:13→19:59)
[2019-01-12] MEDS: Bicalutamide 50 MG TAB PO SCH (09:27)
[2019-01-12] MEDS: Amantadine HCl 100 mg Capsule PO SCH ×2 (09:27→20:00)
[2019-01-12] MEDS ORDERED: Ergocalciferol 1.25 MG(50,000 UNITS) CAP PO SCH (11:00)
[2019-01-12] MEDS ORDERED: Potassium Chloride 20 MEQ TAB PO SCH (11:00)
[2019-01-12] MEDS ORDERED: Magnesium Sulfate 3 GM in Sodium Chloride 0.9% 100 ML IVPB SCH (11:00)
--- NOTE | 2019-01-12 14:44 | PRG ---
DATE OF SERVICE: 01/12/2019 SUBJECTIVE: The patient is seen and examined at the bedside. He is much more alert today, and he is able to even talk to me. He is letting me do physical examination today. OBJECTIVE: VITAL SIGNS: Blood pressure is 101/63, pulse is 108, temperature is 98.1, respiratory rate is 20, and O2 saturation is 92% on room air. HEENT: His sclerae are nonicteric. Oral mucosa is moist. NECK: Supple. LUNGS: Bilateral rales present. HEART: S1 and S2 normal. No S3. No S4. ABDOMEN: Soft, nontender, and nondistended. EXTREMITIES: No clubbing, cyanosis, or edema. NEUROLOGIC: He follows my short simple commands. He is able to move his all 4 extremities. LABORATORY DATA: White count of 4.5, hemoglobin of 10.5, hematocrit 32.6, platelet count is 61,000. Sodium of 131, potassium 3.3, chloride 100, CO2 of 23, BUN 14, creatinine 0.66, calcium 6.2, magnesium 1.2. Microbiology, no new findings. IMPRESSION: 1. Urinary tract retention, status post suprapubic catheter placement. 2. Prostate cancer with bone and liver metastasis. 3. Hypocalcemia, hypomagnesemia, hypokalemia with vitamin D deficiency. All deficiencies to be replaced today. 4. Peripheral swelling. He was started yesterday on Lasix 40 mg. His urine output is 1300. We will continue that regimen. PLAN: The patient was started on a Casodex yesterday. He is supposed to continue on his Lupron and when his hypocalcemia is resolved, he can be started on some med according to our gyro compass tester-oncologist, Dr. Dickerson. Once his deficiencies replaced, he can go [facility] and follow up with the primary oncologist, who is in [place]. Job ID: [id number]
[2019-01-12] MEDS: oxyCODONE 5 MG TAB PO PRN ×2 (16:10→20:09)
[2019-01-12] MEDS: Ondansetron ODT 4 MG TAB PO PRN (19:58)
[2019-01-12] MEDS: Tamsulosin HCl 0.4 MG CAP PO SCH (20:00)
[2019-01-13] MEDS: oxyCODONE 5 MG TAB PO PRN (02:12)
[2019-01-13] MEDS: Furosemide 40 MG TAB PO SCH (08:25)
[2019-01-13] MEDS: Famotidine/PF 20 mg/2ml Vial SLOW IVP SCH ×2 (08:26→21:00)
[2019-01-13] MEDS: Atorvastatin Calcium 40 MG TAB PO SCH (08:26)
[2019-01-13] MEDS: predniSONE 5 MG TAB PO SCH ×2 (08:26→17:02)
[2019-01-13] MEDS: Calcium Carbonate + Vit D 1 TAB PO SCH ×3 (08:26→21:00)
[2019-01-13] MEDS: Clopidogrel Bisulfate 75 MG TAB PO SCH (08:26)
[2019-01-13] MEDS: Ondansetron ODT 4 MG TAB PO PRN (08:35)
[2019-01-13] MEDS: Morphine 4 MG/ML VIAL SLOW IVP PRN ×2 (08:36→20:56)
[2019-01-13] MEDS: Amantadine HCl 100 mg Capsule PO SCH ×2 (10:04→21:06)
[2019-01-13] MEDS: Bicalutamide 50 MG TAB PO SCH (10:04)
[2019-01-13] MEDS ORDERED: Magnesium Sulfate 3 GM in Sodium Chloride 0.9% 100 ML IVPB SCH (13:15)
--- NOTE | 2019-01-13 13:25 | PDOC.PN ---
- Subjective Encounter Start Date: 01/13/19 (f/u prostate cancer) Encounter Start Time: 13:22 Subjective: pt c/o abd discomfort, nausea, pain, increase in leg swelling -: bp's are low - Objective Resuscitation Status - Order Detail: 01/09/19 12:15 Resuscitation Status Routine Resuscitation Status: DNAR: NO Resuscitation Discussed with: per patient's wishes Vital Signs & Weight: Vital Signs (12 hours) Temp Pulse Resp BP BP Pulse Ox 01/13/19 11:44 98.0 F 105 H 18 95/63 91 L 01/13/19 08:46 92 L 01/13/19 08:00 98.1 F 112 H 18 95/61 90 L Weight Weight 190 lb I&O: 01/12/19 01/13/19 01/14/19 06:59 06:59 06:59 Intake Total 1200 1100 Output Total 1300 1600 Balance -100 -500 Result Diagrams: 01/12/19 04:58 01/12/19 04:58 Phys Exam - Physical Examination Constitutional: NAD Respiratory: no wheezing, no rales, no rhonchi, clear to auscultation bilateral Cardiovascular: RRR, no significant murmur Gastrointestinal: soft, positive bowel sounds mild ttp, no palpable abnormalities 2+ LLE, 3+ LLE edema Dx/Plan (1) Metastatic malignant neoplasm to prostate Code(s): C79.82 - SECONDARY MALIGNANT NEOPLASM OF GENITAL ORGANS Status: Chronic (2) Coronary artery disease Code(s): I25.10 - ATHSCL HEART DISEASE OF [place] CORONARY ARTERY W/O ANG PCTRS Status: Chronic (3) Hypertension Code(s): I10 - ESSENTIAL (PRIMARY) HYPERTENSION Status: Chronic Qualifiers: Hypertension type: essential hypertension Qualified Code(s): I10 - Essential (primary) hypertension (4) Hypokalemia Code(s): E87.6 - HYPOKALEMIA Status: Acute (5) Hypomagnesemia Code(s): E83.42 - HYPOMAGNESEMIA Status: Acute (6) Dyslipidemia Code(s): E78.5 - HYPERLIPIDEMIA, UNSPECIFIED Status: Chronic - Plan * RLE edema out of proportion - check US * * Appreciate oncology eval - on med for metastatic cancer * * Address pain - add fentanyl prn * nausea - schedule reglan * replace potassium and magnesium * pt received high dose vitamin d on 10 January - continue tid calcium with vitamin d * pall care for additional sx relief meds * * no signs of infection * I'm concerned pt is at end of life with the current clinical picture and appreciate Pall Care working with him regarding goals of care. Based on those discussions, hospice with the half-way facility may be appropriate - work on sx management here first as well as repletion of electrolytes. * * dvt prophy - lovenox * gi prophy - start protonix * code status DNAR
--- NOTE | 2019-01-13 14:36 | PDOC.PALPN ---
Palliative Progress Note - Subjective Followup visit requested by Dr Anthony secondary to assist with symptom management. Patient states he is in pain, as well as feeling significantly depressed and having difficulty sleeping at night. Continued poor appetite, requesting soup. - Objective Vital Signs: Vital Signs - Most Recent Temp Pulse Resp BP Pulse Ox 98.0 F 105 H 18 95/63 91 L 01/13/19 11:44 01/13/19 11:44 01/13/19 11:44 01/13/19 11:44 01/13/19 11:44 - Physical Exam Deviation from normal: Depressed, chronically ill appering, sunken ocular bed, clavicular wasting HEENT: moist MMs, EOMI Respiratory: no wheezing Deviation from normal: Mild accessory muscle use with conversation Cardiovascular: RRR Gastrointestinal: non-tender Deviation from normal: Distended, tympani on percussion Musculoskeletal: edema present Deviation from normal: Pitting edema to lower extremities Deviation from normal: neuropathy to lower ext Deviation from normal: Brusing, poor tugor - Assessment (1) Palliative care encounter Code(s): Z51.5 - ENCOUNTER FOR PALLIATIVE CARE Current Visit: Yes Status: Acute (2) Insomnia Code(s): G47.00 - INSOMNIA, UNSPECIFIED Current Visit: Yes Status: Acute Qualifiers: Insomnia type: unspecified Qualified Code(s): G47.00 - Insomnia, unspecified Assessment: States difficulty falling asleep and maintaining a sleep state, fatigued during the day. (3) Depressed Code(s): F32.9 - MAJOR DEPRESSIVE DISORDER, SINGLE EPISODE, UNSPECIFIED Current Visit: Yes Status: Acute Qualifiers: Depression Type: other depression Qualified Code(s): F32.89 - Other specified depressive episodes Comment: Patient at resident at [facility] with metastatic cancer. Patient having insomnia/ difficulty sleeping, poor appetite. - Plan Plan: Continues with chronic pain, Dr Anthony added Fentanyl to patient medications. *Patient appetite poor and only soup sounds palatable, will have soup brought up for dinner for the patient. Communicated to patient nurse. *Melatonin ordered for tonight and will assess therapeutic effect in the morning *If Melatonin effective will add an antidepressant in the morning for depression symptoms *If melatonon is not fully therapeutic will consider Amitriptyline qHS to facilitate restful sleep as well as address depression *Assess therapeutic response to use of Fentanyl for pain and make recommendations as need to manage symptoms. Communicated with patient nurse as well as Ketty Townsend Palliative Care RN for coordination of care. [40] minutes spent on this encounter with >50% of the time in counseling and coordination of care.
--- NOTE | 2019-01-13 15:51 | ULT ---
EXAM: Right lower extremity venous duplex: Deep veins evaluated with color Doppler, spectral analysis, and compression. INDICATIONS: Right lower extremity pain and edema. FINDINGS: Deep veins interrogated include common femoral vein, femoral vein, popliteal vein, and post erior tibial vein. These veins show normal compression and blood flow. No evidence of DVT. IMPRESSION: Negative Right venous duplex exam.
[2019-01-13] MEDS ORDERED: Potassium Chloride 20 MEQ TAB PO SCH (17:00)
[2019-01-13] MEDS: Metoclopramide HCl 10 MG TAB PO SCH ×2 (17:02→21:01)
[2019-01-13] MEDS: Fentanyl 100 MCG/2 ML VIAL SLOW IVP PRN (17:03)
[2019-01-13] MEDS ORDERED: Melatonin 3 MG TAB PO SCH (21:00)
[2019-01-13] MEDS: Tamsulosin HCl 0.4 MG CAP PO SCH (21:01)
[2019-01-14] MEDS: Morphine 4 MG/ML VIAL SLOW IVP PRN (03:33)
[2019-01-14 06:11] LABS: ALT (SGPT) 76 U/L (8-55); AST (SGOT) 621 U/L (5-34); Albumin 2.4 g/dL (3.4-4.8); Alkaline Phosphatase 463 U/L (40-150); Anion Gap 16 mmol/L (10-20); BUN (Urea Nitrogen) 22 mg/dL (8.4-25.7); Calc. Creatinine Clearance 100 mL/min (70-130); Calcium 6.4 mg/dL (7.8-10.44); Carbon Dioxide 19 mmol/L (23-31); Chloride 93 mmol/L (98-107); Estimated GFR-MDRD Greater than 90; Globulin 2.8 g/dL (2.4-3.5); Glucose 96 mg/dL (83-110); Magnesium 2.1 mg/dL (1.6-2.6); Potassium 3.8 mmol/L (3.5-5.1); Protein, Total 5.2 g/dL (5.8-8.1); Sodium 124 mmol/L (136-145)
[2019-01-14 06:14] LABS: Phosphorus 1.9 mg/dL (2.3-4.7)
[2019-01-14] MEDS: Fentanyl 100 MCG/2 ML VIAL SLOW IVP PRN (06:57)
[2019-01-14] MEDS ORDERED: Loratadine 10 MG TAB PO PRN (08:10)
[2019-01-14] MEDS ORDERED: Artificial Tears 18 DROP/0.9 ML EA EYE PRN (08:10)
[2019-01-14] MEDS ORDERED: hydrALAZINE 20 MG/ML VIAL SLOW IVP PRN (08:10)
[2019-01-14] MEDS ORDERED: Loperamide HCl 2 MG CAP PO PRN (08:10)
[2019-01-14] MEDS ORDERED: Zolpidem Tartrate 5 MG TAB PO PRN (08:10)
[2019-01-14] MEDS ORDERED: Diabetic Tussin 200 MG/10 ML UDCUP PO PRN (08:10)
[2019-01-14] MEDS ORDERED: Senokot S 8.6-50 MG TAB PO PRN (08:10)
[2019-01-14] MEDS ORDERED: Bisacodyl 5 MG TAB PO PRN (08:10)
[2019-01-14] MEDS ORDERED: Sodium Chloride 0.65% Nasal 44 ML BOT EA NARE PRN (08:10)
[2019-01-14] MEDS ORDERED: Cepastat Lozenges 1 LOZ PO PRN (08:10)
[2019-01-14] MEDS: Ondansetron ODT 4 MG TAB PO PRN (08:45)
[2019-01-14] MEDS: Famotidine/PF 20 mg/2ml Vial SLOW IVP SCH ×2 (08:46→20:34)
[2019-01-14] MEDS: Furosemide 40 MG TAB PO SCH (08:49)
[2019-01-14] MEDS: Clopidogrel Bisulfate 75 MG TAB PO SCH (08:50)
[2019-01-14] MEDS: PHOS-NAK 1 PKT PACK PO SCH ×3 (08:50→20:34)
[2019-01-14] MEDS: Calcium Carbonate + Vit D 1 TAB PO SCH ×3 (08:50→20:33)
[2019-01-14] MEDS: predniSONE 5 MG TAB PO SCH ×2 (08:50→16:55)
[2019-01-14] MEDS: Atorvastatin Calcium 40 MG TAB PO SCH (08:50)
[2019-01-14] MEDS: Amantadine HCl 100 mg Capsule PO SCH ×2 (08:50→20:33)
[2019-01-14] MEDS: Bicalutamide 50 MG TAB PO SCH (08:51)
[2019-01-14] MEDS: Metoclopramide HCl 10 MG TAB PO SCH ×4 (08:51→20:34)
[2019-01-14] MEDS: HYDROcodone/Acetaminophen 5/325 mg Tablet PO PRN ×3 (11:35→22:44)
--- NOTE | 2019-01-14 11:42 | PDOC.PN ---
- Subjective Encounter Start Date: 01/14/19 Encounter Start Time: 07:40 -: old records requested/rev pt has increasing leg edema, he has poor apatite, he has pain, not feeling overall good - Objective Resuscitation Status - Order Detail: 01/09/19 12:15 Resuscitation Status Routine Resuscitation Status: DNAR: NO Resuscitation Discussed with: per patient's wishes MAR Reviewed: Yes Vital Signs & Weight: Vital Signs (12 hours) Temp Pulse Resp BP Pulse Ox 01/14/19 09:01 99 01/14/19 08:00 97.9 F 113 H 16 99/66 99 01/14/19 04:00 97.9 F 105 H 18 99/58 L 97 01/14/19 00:00 98.1 F 104 H 18 99/63 96 Weight Weight 190 lb I&O: 01/13/19 01/14/19 01/15/19 06:59 06:59 06:59 Intake Total 1100 1970 240 Output Total 1600 1375 Balance -500 595 240 Result Diagrams: 01/12/19 04:58 01/14/19 05:39 Phys Exam - Physical Examination Constitutional: NAD HEENT: moist MMs icterus+ Neck: no JVD, supple Respiratory: no wheezing, no rales, no rhonchi Cardiovascular: RRR, no significant murmur, no rub Gastrointestinal: soft, non-tender, no distention, positive bowel sounds Musculoskeletal: pulses present, edema present Neurological: non-focal, normal sensation, moves all 4 limbs Lymphatic: no nodes Psychiatric: normal affect, A&O x 3 Skin: normal turgor Dx/Plan (1) Hypocalcemia Code(s): E83.51 - HYPOCALCEMIA Status: Resolved (2) Hypokalemia Code(s): E87.6 - HYPOKALEMIA Status: Resolved (3) Hypomagnesemia Code(s): E83.42 - HYPOMAGNESEMIA Status: Resolved (4) Hypophosphatemia Code(s): E83.39 - OTHER DISORDERS OF PHOSPHORUS METABOLISM Status: Acute (5) Insomnia Code(s): G47.00 - INSOMNIA, UNSPECIFIED Status: Chronic Qualifiers: Insomnia type: unspecified Qualified Code(s): G47.00 - Insomnia, unspecified (6) Prostate cancer metastatic to intraabdominal lymph node Code(s): C61 - MALIGNANT NEOPLASM OF PROSTATE; C77.2 - SECONDARY AND UNSP MALIGNANT NEOPLASM OF INTRA-ABD NODES Status: Chronic (7) Prostate cancer metastatic to liver Code(s): C61 - MALIGNANT NEOPLASM OF PROSTATE; C78.7 - SECONDARY MALIG NEOPLASM OF LIVER AND INTRAHEPATIC BILE DUCT Status: Chronic (8) Anxiety and depression Code(s): F41.9 - ANXIETY DISORDER, UNSPECIFIED; F32.9 - MAJOR DEPRESSIVE DISORDER, SINGLE EPISODE, UNSPECIFIED Status: Chronic (9) Coronary artery disease Code(s): I25.10 - ATHSCL HEART DISEASE OF [place] CORONARY ARTERY W/O ANG PCTRS Status: Chronic (10) Dyslipidemia Code(s): E78.5 - HYPERLIPIDEMIA, UNSPECIFIED Status: Chronic (11) Hypertension Code(s): I10 - ESSENTIAL (PRIMARY) HYPERTENSION Status: Chronic Qualifiers: Hypertension type: essential hypertension Qualified Code(s): I10 - Essential (primary) hypertension (12) Obesity (BMI 30.0-34.9) Code(s): E66.9 - OBESITY, UNSPECIFIED Status: Chronic (13) Pancytopenia Code(s): D61.818 - OTHER PANCYTOPENIA Status: Chronic (14) Vitamin D deficiency Code(s): E55.9 - VITAMIN D DEFICIENCY, UNSPECIFIED Status: Chronic (15) Abnormal LFTs Code(s): R94.5 - ABNORMAL RESULTS OF LIVER FUNCTION STUDIES Status: Acute (16) Edema, lower extremity Code(s): R60.0 - LOCALIZED EDEMA Status: Acute - Plan cont current plan of care, social media strategist * pt is from shelter, he will need hospice type of care at shelter, will consult case management social worker to assist with discharge planning * palliative care on case for comfort care * prognosis is very poor * replace phos nac * medication reviewed as below * symptomatic treatment * pain control. Review of Systems - Review of Systems Constitutional: weakness, malaise. negative: fever, chills, sweats, other Eyes: negative: Pain, Vision Change, Conjunctivae Inflammation, Eyelid Inflammation, Redness, Other ENT: negative: Ear Pain, Ear Discharge, Nose Pain, Nose Discharge, Nose Congestion, Mouth Pain, Mouth Swelling, Throat Pain, Throat Swelling, Other Respiratory: negative: Cough, Dry, Shortness of Breath, Hemoptysis, SOB with Excertion, Pleuritic Pain, Sputum, Wheezing Cardiovascular: edema. negative: chest pain, palpitations, orthopnea, paroxysmal nocturnal dyspnea, light headedness, other Gastrointestinal: Nausea. negative: Vomiting, Abdominal Pain, Diarrhea, Constipation, Melena, Hematochezia, Other Genitourinary: negative: Dysuria, Frequency, Incontinence, Hematuria, Retention , Other Musculoskeletal: Back Pain, Leg Pain. negative: Neck Pain, Shoulder Pain, Arm Pain, Hand Pain, Foot Pain, Other - Medications/Allergies Allergies/Adverse Reactions: Allergies Allergy/AdvReac Type Severity Reaction Status Date / Time aspirin Allergy Rash Verified 01/09/19 02:44 mupirocin [From Bactroban] Allergy Hives Verified 01/09/19 02:44 Medications: Current Medications Acetaminophen (Tylenol) 650 mg PO Q4H PRN PRN Reason: Headache/Fever/Mild Pain (1-3) Hydrocodone Bitart/Acetaminophen ([place] 5/325) 1 tab PO Q4H PRN PRN Reason: Moderate Pain (4-6) Last Admin: 01/14/19 11:35 Dose: 1 tab Amantadine HCl (Symmetrel) 100 mg PO BID [facility] Last Admin: 01/14/19 08:50 Dose: 100 mg Artificial Tears (Tears Naturale) 2 drop EA EYE PRN PRN PRN Reason: Dry Eyes Atorvastatin Calcium (Lipitor) 40 mg PO DAILY [facility] Last Admin: 01/14/19 08:50 Dose: 40 mg Bicalutamide (Casodex) 50 mg PO DAILY [facility] Last Admin: 01/14/19 08:51 Dose: 50 mg Bisacodyl (Dulcolax) 10 mg PO DAILYPRN PRN PRN Reason: Constipation Calcium/Vitamin D (Caltrate 600 + Vit D) 1 tab PO TID [facility] Last Admin: 01/14/19 08:50 Dose: 1 tab Clopidogrel Bisulfate (Plavix) 75 mg PO DAILY [facility] Last Admin: 01/14/19 08:50 Dose: 75 mg Famotidine (Pepcid) 20 mg SLOW IVP Q12HR [facility] Last Admin: 01/14/19 08:46 Dose: 20 mg Fentanyl (Sublimaze) 25 mcg SLOW IVP Q2H PRN PRN Reason: Moderate to Severe Pain (6-10) Last Admin: 01/14/19 06:57 Dose: 25 mcg Furosemide (Lasix) 40 mg PO DAILY-[facility] Last Admin: 01/14/19 08:49 Dose: 40 mg Guaifenesin (Robitussin Sf) 200 mg PO Q4H PRN PRN Reason: Cough Hydralazine HCl (Apresoline) 10 mg SLOW IVP Q4H PRN PRN Reason: SBP > 180 and HR < 70 Loperamide HCl (Imodium) 2 mg PO PRN PRN PRN Reason: Diarrhea/Loose Stools Loratadine (Claritin) 10 mg PO DAILYPRN PRN PRN Reason: Sinus Symptoms Melatonin (Melatonin) 3 mg PO HS [facility] Stop: 01/20/19 21:01 Last Admin: 01/13/19 21:00 Dose: 3 mg Metoclopramide HCl (Reglan) 10 mg PO [facility] Last Admin: 01/14/19 11:35 Dose: 10 mg Miscellaneous Medication (Phos-Nak) 1 pkt PO TID [facility] Last Admin: 01/14/19 08:50 Dose: 1 pkt Morphine Sulfate (Morphine) 4 mg SLOW IVP Q4H PRN PRN Reason: Moderate Pain (4-6) Last Admin: 01/14/19 03:33 Dose: 4 mg Ondansetron HCl (Zofran Odt) 4 mg PO Q8H PRN PRN Reason: Nausea/Vomiting Last Admin: 01/14/19 08:45 Dose: 4 mg Oxycodone HCl (Oxycodone Ir) 5 mg PO Q4H PRN PRN Reason: Pain Last Admin: 01/13/19 02:12 Dose: 5 mg Pantoprazole Sodium (Protonix) 40 mg PO DAILY [facility] Last Admin: 01/14/19 08:50 Dose: 40 mg Prednisone (Prednisone) 5 mg PO BID-[facility] Last Admin: 01/14/19 08:50 Dose: 5 mg Senna/Docusate Sodium (Senokot S) 2 tab PO BID PRN PRN Reason: Constipation Sodium Chloride (Flush - Normal Saline) 10 ml IVF Q12HR [facility] Last Admin: 01/14/19 08:47 Dose: 10 ml Sodium Chloride (Flush - Normal Saline) 10 ml IVF PRN PRN PRN Reason: Saline Flush Last Admin: 01/13/19 14:51 Dose: 10 ml Sodium Chloride ([place] Nasal [place] 0.65%) 0 ml EA NARE QIDPRN PRN PRN Reason: Nasal Congestion Tamsulosin HCl (Flomax) 0.4 mg PO HS [facility] Last Admin: 01/13/19 21:01 Dose: 0.4 mg Throat Lozenges (Cepastat Lozenges) 1 gwyn PO Q2H PRN PRN Reason: Sore Throat Zolpidem Tartrate (Ambien) 5 mg PO HSPRN PRN PRN Reason: Insomnia
[2019-01-14 13:46] VITALS: BMI 30.7
[2019-01-14] MEDS: Tamsulosin HCl 0.4 MG CAP PO SCH (20:34)
[2019-01-14] MEDS ORDERED: Melatonin 3 MG TAB PO SCH (21:00)
[2019-01-15 06:15] LABS: Hemoglobin 10.4 g/dL (14.0-18.0); Mean Corpuscular HGB CONC 33.3 g/dL (32.0-36.0); Mean Corpuscular Hemoglobin 29.1 pg (27.0-31.0); Mean Corpuscular Volume 87.4 fL (78.0-98.0); Mean Platelet Volume 10.1 fL (7.4-10.4); Platelet Count 62 thou/uL (130-400); Red Blood Cell (RBC) Count 3.57 mill/uL (4.70-6.10)
[2019-01-15 06:16] LABS: Band 20 % (5-11); Lymphocytes 25 % (21-51); MDiff Complete? YES; Metamyelocyte 1 % (0-0); Monocytes 9 % (0-10); Myelocyte 1 % (0-0); Neutrophil 43 % (42-75); Nucleated RBC 2 % (0); Platelet Morphology Comment Appears Decreased
[2019-01-15 06:40] LABS: ALT (SGPT) 107 U/L (8-55); AST (SGOT) 1090 U/L (5-34); Albumin 2.3 g/dL (3.4-4.8); Alkaline Phosphatase 564 U/L (40-150); Anion Gap 22 mmol/L (10-20); BUN (Urea Nitrogen) 32 mg/dL (8.4-25.7); Bilirubin, Total 7.5 mg/dL (0.2-1.2); Calc. Creatinine Clearance 63 mL/min (70-130); Calcium 6.3 mg/dL (7.8-10.44); Carbon Dioxide 13 mmol/L (23-31); Chloride 91 mmol/L (98-107); Estimated GFR-MDRD 55; Globulin 2.9 g/dL (2.4-3.5); Glucose 71 mg/dL (83-110); Potassium 5.2 mmol/L (3.5-5.1); Protein, Total 5.2 g/dL (5.8-8.1); Sodium 121 mmol/L (136-145)
[2019-01-15] MEDS: HYDROcodone/Acetaminophen 5/325 mg Tablet PO PRN (07:15)
[2019-01-15] MEDS ORDERED: Acetaminophen 325 MG TAB PO PRN (07:53)
[2019-01-15] MEDS ORDERED: FLUoxetine HCl 20 MG CAP PO SCH (09:00)
[2019-01-15] MEDS ORDERED: Furosemide 40 MG/4 ML VIAL SLOW IVP SCH (09:00)
[2019-01-15] MEDS: Bicalutamide 50 MG TAB PO SCH ×2 (09:12→09:24)
[2019-01-15] MEDS: predniSONE 5 MG TAB PO SCH ×3 (09:12→14:40)
[2019-01-15] MEDS: Metoclopramide HCl 10 MG TAB PO SCH ×4 (09:12→14:40)
[2019-01-15] MEDS: Calcium Carbonate + Vit D 1 TAB PO SCH ×2 (09:12→14:40)
[2019-01-15] MEDS: Famotidine 20 MG TAB PO SCH ×2 (09:13→09:24)
[2019-01-15] MEDS: PHOS-NAK 1 PKT PACK PO SCH ×3 (09:13→14:40)
[2019-01-15] MEDS: Furosemide 40 MG TAB PO SCH (09:30)
--- NOTE | 2019-01-15 11:36 | PDOC.PN ---
- Subjective Encounter Start Date: 01/15/19 Encounter Start Time: 07:00 Patient seen and examined. pt is confused today, No overnight events - Objective Resuscitation Status - Order Detail: 01/09/19 12:15 Resuscitation Status Routine Resuscitation Status: DNAR: NO Resuscitation Discussed with: per patient's wishes MAR Reviewed: Yes Vital Signs & Weight: Vital Signs (12 hours) Temp Pulse Resp BP Pulse Ox 01/15/19 08:00 98.0 F 109 H 16 124/68 94 L 01/15/19 07:40 94 L 01/15/19 04:00 97.8 F 100 16 95/60 94 L Weight Admit Weight 190 lb Weight 190 lb I&O: 01/14/19 01/15/19 01/16/19 06:59 06:59 06:59 Intake Total 1970 2150 300 Output Total 1375 675 Balance 595 1475 300 Result Diagrams: 01/15/19 05:40 01/15/19 05:40 Phys Exam - Physical Examination Constitutional: NAD HEENT: PERRLA dry MM, icterus Neck: no JVD, supple Respiratory: no wheezing, no rales, no rhonchi Cardiovascular: RRR, no significant murmur, no rub Gastrointestinal: soft, no distention Musculoskeletal: edema present Neurological: moves all 4 limbs confused Deviation from normal: confused Dx/Plan (1) Hypocalcemia Code(s): E83.51 - HYPOCALCEMIA Status: Resolved (2) Hypokalemia Code(s): E87.6 - HYPOKALEMIA Status: Resolved (3) Hypomagnesemia Code(s): E83.42 - HYPOMAGNESEMIA Status: Resolved (4) Hypophosphatemia Code(s): E83.39 - OTHER DISORDERS OF PHOSPHORUS METABOLISM Status: Acute (5) Insomnia Code(s): G47.00 - INSOMNIA, UNSPECIFIED Status: Chronic Qualifiers: Insomnia type: unspecified Qualified Code(s): G47.00 - Insomnia, unspecified (6) Prostate cancer metastatic to intraabdominal lymph node Code(s): C61 - MALIGNANT NEOPLASM OF PROSTATE; C77.2 - SECONDARY AND UNSP MALIGNANT NEOPLASM OF INTRA-ABD NODES Status: Chronic (7) Prostate cancer metastatic to liver Code(s): C61 - MALIGNANT NEOPLASM OF PROSTATE; C78.7 - SECONDARY MALIG NEOPLASM OF LIVER AND INTRAHEPATIC BILE DUCT Status: Chronic (8) Anxiety and depression Code(s): F41.9 - ANXIETY DISORDER, UNSPECIFIED; F32.9 - MAJOR DEPRESSIVE DISORDER, SINGLE EPISODE, UNSPECIFIED Status: Chronic (9) Coronary artery disease Code(s): I25.10 - ATHSCL HEART DISEASE OF [place] CORONARY ARTERY W/O ANG PCTRS Status: Chronic (10) Dyslipidemia Code(s): E78.5 - HYPERLIPIDEMIA, UNSPECIFIED Status: Chronic (11) Hypertension Code(s): I10 - ESSENTIAL (PRIMARY) HYPERTENSION Status: Chronic Qualifiers: Hypertension type: essential hypertension Qualified Code(s): I10 - Essential (primary) hypertension (12) Obesity (BMI 30.0-34.9) Code(s): E66.9 - OBESITY, UNSPECIFIED Status: Chronic (13) Pancytopenia Code(s): D61.818 - OTHER PANCYTOPENIA Status: Chronic (14) Vitamin D deficiency Code(s): E55.9 - VITAMIN D DEFICIENCY, UNSPECIFIED Status: Chronic (15) Abnormal LFTs Code(s): R94.5 - ABNORMAL RESULTS OF LIVER FUNCTION STUDIES Status: Acute (16) Edema, lower extremity Code(s): R60.0 - LOCALIZED EDEMA Status: Acute (17) Acute metabolic encephalopathy Code(s): G93.41 - METABOLIC ENCEPHALOPATHY Status: Acute - Plan cont current plan of care * pt is not doing well, he has metabolic encephalopathy, he has liver failure, now very low sodium. * today I will consult nephrology and GI for their opinion * will check ammonia level * he needs to be hospice pt, palliative care following * medication reviewed as below * symptomatic treatment * prognosis is very poor * field nurse case manager to assist with hospice arrangement Review of Systems - Review of Systems Other: unable to review due to encephalopathy - Medications/Allergies Allergies/Adverse Reactions: Allergies Allergy/AdvReac Type Severity Reaction Status Date / Time aspirin Allergy Rash Verified 01/09/19 02:44 mupirocin [From Bactroban] Allergy Hives Verified 01/09/19 02:44 Medications: Current Medications Acetaminophen (Tylenol) 325 mg PO Q4H PRN PRN Reason: Headache/Fever/Mild Pain (1-3) Hydrocodone Bitart/Acetaminophen ([place] 5/325) 1 tab PO Q4H PRN PRN Reason: Moderate Pain (4-6) Last Admin: 01/15/19 07:15 Dose: 1 tab Artificial Tears (Tears Naturale) 2 drop EA EYE PRN PRN PRN Reason: Dry Eyes Bicalutamide (Casodex) 50 mg PO DAILY [facility] Last Admin: 01/15/19 09:24 Dose: 50 mg Bisacodyl (Dulcolax) 10 mg PO DAILYPRN PRN PRN Reason: Constipation Last Admin: 01/14/19 17:57 Dose: 10 mg Calcium/Vitamin D (Caltrate 600 + Vit D) 1 tab PO TID [facility] Last Admin: 01/15/19 09:12 Dose: 1 tab Famotidine (Pepcid) 20 mg PO BID [facility] Last Admin: 01/15/19 09:24 Dose: 20 mg Fentanyl (Sublimaze) 25 mcg SLOW IVP Q2H PRN PRN Reason: Moderate to Severe Pain (6-10) Last Admin: 01/14/19 06:57 Dose: 25 mcg Fluoxetine HCl (Prozac) 20 mg PO DAILY [facility] Last Admin: 01/15/19 09:13 Dose: 20 mg Furosemide (Lasix) 40 mg SLOW IVP DAILY [facility] Last Admin: 01/15/19 09:13 Dose: 40 mg Guaifenesin (Robitussin Sf) 200 mg PO Q4H PRN PRN Reason: Cough Hydralazine HCl (Apresoline) 10 mg SLOW IVP Q4H PRN PRN Reason: SBP > 180 and HR < 70 Lactulose (Lactulose) 20 gm PO DAILY [facility] Last Admin: 01/15/19 09:13 Dose: 20 gm Loperamide HCl (Imodium) 2 mg PO PRN PRN PRN Reason: Diarrhea/Loose Stools Loratadine (Claritin) 10 mg PO DAILYPRN PRN PRN Reason: Sinus Symptoms Melatonin (Melatonin) 9 mg PO HS [facility] Stop: 01/20/19 23:59 Last Admin: 01/14/19 20:34 Dose: 9 mg Metoclopramide HCl (Reglan) 10 mg PO ACHS [facility] Last Admin: 01/15/19 11:19 Dose: Not Given Miscellaneous Medication (Phos-Nak) 1 pkt PO TID [facility] Last Admin: 01/15/19 09:24 Dose: 1 pkt Morphine Sulfate (Morphine) 4 mg SLOW IVP Q4H PRN PRN Reason: Moderate Pain (4-6) Last Admin: 01/14/19 03:33 Dose: 4 mg Ondansetron HCl (Zofran Odt) 4 mg PO Q8H PRN PRN Reason: Nausea/Vomiting Last Admin: 01/14/19 08:45 Dose: 4 mg Oxycodone HCl (Oxycodone Ir) 5 mg PO Q4H PRN PRN Reason: Pain Last Admin: 01/13/19 02:12 Dose: 5 mg Pantoprazole Sodium (Protonix) 40 mg PO DAILY [facility] Last Admin: 01/15/19 09:13 Dose: 40 mg Prednisone (Prednisone) 5 mg PO BID-[facility] Last Admin: 01/15/19 09:23 Dose: 5 mg Senna/Docusate Sodium (Senokot S) 2 tab PO BID PRN PRN Reason: Constipation Sodium Chloride (Flush - Normal Saline) 10 ml IVF Q12HR [facility] Last Admin: 01/15/19 09:13 Dose: 10 ml Sodium Chloride (Flush - Normal Saline) 10 ml IVF PRN PRN PRN Reason: Saline Flush Last Admin: 01/13/19 14:51 Dose: 10 ml Sodium Chloride ([place] Nasal [place] 0.65%) 0 ml EA NARE QIDPRN PRN PRN Reason: Nasal Congestion Tamsulosin HCl (Flomax) 0.4 mg PO HS [facility] Last Admin: 01/14/19 20:34 Dose: 0.4 mg Throat Lozenges (Cepastat Lozenges) 1 gwyn PO Q2H PRN PRN Reason: Sore Throat Zolpidem Tartrate (Ambien) 5 mg PO HSPRN PRN PRN Reason: Insomnia Last Admin: 01/15/19 00:02 Dose: 5 mg
[2019-01-15] MEDS: Morphine 4 MG/ML VIAL SLOW IVP PRN ×2 (11:56→16:06)
[2019-01-15 13:46] LABS: INR-International Normal Ratio 2.7; Prothrombin Time 28.1 SEC (12.0-14.7)
[2019-01-15 16:51] VITALS: TEMP 98.1
[2019-01-15 17:00] VITALS: BP 72/41
[2019-01-15] MEDS ORDERED: Albumin 25% 25 GM/100 ML BOT IVPB SCH (17:30)
--- NOTE | 2019-01-15 22:04 | CON ---
DATE OF CONSULTATION: 01/15/2019 HISTORY OF PRESENT ILLNESS: I was consulted to evaluate Mr. Colon for abnormal liver function tests. He was admitted to the hospital on 01/08/2019 with sepsis and urinary complaints. Further evaluation revealed widely metastatic prostate cancer. He has developed a numerable metastases to the liver. He has had elevated liver tests associated with that. His clinical status has declined further and he is delirious and encephalopathic associated with hyponatremia. The patient is not able to contribute the history and just moans and cannot tell me his name. He is jaundiced and his abdomen does not have obvious tenderness. He has 4+ pitting lower extremity edema. IMPRESSION: 1. Terminal prostate cancer for which he is being referred for inpatient hospice. He is unlikely to last long. 2. Abnormal liver tests secondary to widely metastatic disease to the liver. 3. Hyponatremia and confusion. RECOMMENDATIONS: 1. Comfort care. 2. I will sign off. Please call if GI can be of assistance. Job ID: [id number]
--- NOTE | 2019-01-15 23:59 | CON ---
DATE OF CONSULTATION: HISTORY OF PRESENT ILLNESS: Mr. Colon is a 73-year-old white male with a history of metastatic prostate cancer, was admitted for urinary urgency as well as dysuria. Urology has been consulted and a suprapubic catheter has been placed. The patient was referred due to his underlying acute hyponatremia. REVIEW OF SYSTEMS: Positive for joint pains. Positive for myalgia, decreased appetite, decreased energy level. Positive for urinary hesitancy. No melena. No hematemesis. No headache. Positive for abdominal fullness. No nausea, decreased energy level. No fever or chills. No chest pain. No shortness of breath. PAST MEDICAL HISTORY: 1. History of metastatic prostate cancer. 2. History of coronary artery disease. 3. Hypertension. 4. Dyslipidemia. 5. Aortic valve disease. PAST SURGICAL HISTORY: 1. Status post cardiac cath. 2. Status post CABG with aortic valve replacement. 3. Status post prostate biopsy. 4. s/p suprapubic tube placement. FAMILY HISTORY: No family history of ESRD. Mother had bone cancer. ALLERGIES: ASPIRIN. TRAUMA: None. IMMUNIZATION: Up-to-date. HOSPITALIZATIONS: Please see past medical history. SOCIAL HISTORY: The patient is currently incarcerated. No smoking. No alcohol intake. No drug abuse. CURRENT MEDICATIONS: Includes [place] 5/325 q.4h p.r.n., Casodex 50 mg daily, Caltrate plus vitamin D 600 mg one tab t.i.d., Pepcid 20 mg p.o. b.i.d., fentanyl 25 mcg IV q.2 hours, furosemide 40 mg IV daily, lactulose 20 g daily, melatonin 9 mg nightly, Reglan 10 mg before meals, Phos-Nak 1 packet p.o. t.i.d. - currently not given, morphine sulfate 4 mg IV q.4, Protonix 40 mg tablet once a day, prednisone 5 mg p.o. b.i.d., and Flomax 0.4 mg at bedtime. PHYSICAL EXAMINATION: VITAL SIGNS: Blood pressure is 72/41, heart rate 103, temperature 98.1, respiratory rate 20. GENERAL: The patient is awake, but somewhat confused, in mild distress. SKIN: Adequate turgor. HEENT: He has slightly pale conjunctivae. Anicteric sclerae. No neck mass. No carotid bruits. No JVD. CHEST: No deformities. Lungs decreased breath sounds. HEART: Normal sinus rhythm. No murmur. No gallops. No rubs. ABDOMEN: Globular, soft, nontender. No masses. EXTREMITIES: A +2 bilateral pitting edema. LABORATORY DATA: Laboratories of January 15, 2019; white count 6, hemoglobin 10.4, sodium 121, potassium is 5.2, chloride 91, carbon dioxide 13, BUN 32, creatinine 1.28, calcium 6.3, AST 1090, ALT 107, uric acid is 13.8, phosphorus 1.9, and albumin 2.3. ASSESSMENT AND PLAN: 1. Acute hyponatremia - I feel that this is most likely dilutional hyponatremia with findings of generalized edema and especially with the leg edema. Uric acid was also noted to be elevated suggesting that this is very unlikely from syndrome of inappropriate antidiuretic hormone secretion. Agree with IV diuresis with this patient. To enhance the efficacy of the Lasix, we will start this patient on albumin infusion of 25 g IV q.6 hours. For the moment due to the low blood pressure, we will maintain the Lasix at 40 mg IV daily. 2. His overall prognosis remains poor. He does have metastatic prostate cancer. I feel that hospice will be appropriate. Job ID: [id number] [facility]
[2019-01-16] MEDS ORDERED: Furosemide 40 MG/4 ML VIAL SLOW IVP SCH ×2 (06:00→09:00)
--- NOTE | 2019-01-16 10:47 | DIS ---
DATE OF ADMISSION: 01/09/2019 DATE OF DISCHARGE: 01/15/2019 SUMMARY: DATE OF : January 15, 2019 at 7:10 p.m. DISCHARGE DISPOSITION: . PRIMARY CAUSE OF : Advanced prostate cancer metastatic to liver, lymph node, and bone; acute metabolic encephalopathy, acute liver failure, and sepsis. CONTRIBUTING DIAGNOSES: Severe electrolyte abnormality, anasarca, coronary artery disease, and vitamin D deficiency. HOSPITAL COURSE: A 73-year-old male, who was admitted on January 08, [address] Coyle. Please see her H and P for further details. The patient was admitted for urinary symptoms. He had urinary retention. He has advanced prostate cancer with retroperitoneal lymphadenopathy as well as liver metastasis. Because of that, the patient has acute liver failure. Urology was following during this admission. Oncology was consulted during this admission. The patient was meeting sepsis criteria on admission with urinary tract infection, which was treated with antibiotic therapy. The patient was not a candidate for any kind of chemotherapy rather than Lupron therapy. This patient's prognosis was extremely poor. He had significant physical deconditioning. He developed encephalopathy while in hospital because of liver failure. He also had significant and severe electrolyte abnormality with anasarca, which we tried to correct. Initially, this patient changed his mind to DNR status. He was initially not agreed with hospice, but subsequently his condition deteriorated. At that point, he expressed his wish to be a comfort care. We were planning to let him go to hospice facility in half-way system, but the patient's condition deteriorated rapidly and he . Nurse pronounced . Job ID: [id number]
--- NOTE | 2019-01-16 12:55 | EKG ---
Test Reason : Blood Pressure : / mmHG Vent. Rate : 106 BPM Atrial Rate : 106 BPM P-R Int : 124 ms QRS Dur : 072 ms QT Int : 378 ms P-R-T Axes : 117 044 -08 degrees QTc Int : 502 ms Sinus tachycardia with occasional Premature ventricular complexes Septal infarct , age undetermined Abnormal ECG Confirmed by AALIYAH GRIFFIN, GER Sanchez ([id number]), television news video editor GEMA ALVARENGA ([id number]) on 01/16/2019 12:55:37 PM Referred By: Confirmed By:GER FISCHER MD
== END 2019-01-15 19:10 | disposition expired | DRG 871 ==
LOC: EEVIPCON 18:24 → ERS 18:24 → 2NO 01-09 00:25 → T4-A 01-11 13:49
PROVIDERS: ADMIT Internal Medicine; ATTEND Internal Medicine
DX: A41.9 Sepsis, unspecified organism (principal); G93.41 Metabolic encephalopathy; K72.00 Acute and subacute hepatic failure without coma; Z51.5 Encounter for palliative care; Z66 Do not resuscitate; C78.7 Secondary malignant neoplasm of liver and intrahepatic bile duct; C77.9 Secondary and unspecified malignant neoplasm of lymph node, unspecified; C79.51 Secondary malignant neoplasm of bone; N39.0 Urinary tract infection, site not specified; D61.818 Other pancytopenia; E87.1 Hypo-osmolality and hyponatremia; G47.00 Insomnia, unspecified; E87.6 Hypokalemia; E78.5 Hyperlipidemia, unspecified; I10 Essential (primary) hypertension; F32.9 Major depressive disorder, single episode, unspecified; E66.9 Obesity, unspecified; C61 Malignant neoplasm of prostate; R65.20 Severe sepsis without septic shock; I25.10 Atherosclerotic heart disease of native coronary artery without angina pectoris; E55.9 Vitamin D deficiency, unspecified; R33.9 Retention of urine, unspecified; Z88.8 Allergy status to other drugs, medicaments and biological substances; Z95.1 Presence of aortocoronary bypass graft; Z79.01 Long term (current) use of anticoagulants; Z95.2 Presence of prosthetic heart valve; Z90.49 Acquired absence of other specified parts of digestive tract; Z68.30 Body mass index [BMI] 30.0-30.9, adult
CPT/HCPCS: 36415; 51705; 71045; 74177; 76705; 80048; 80053; 80074; 80306; 80307; 81003; 81015; 82140; 82248; 82306; 82330; 82803; 83605; 83735; 83880; 84100; 84153; 84443; 84484; 84550; 85025; 85610; 85730; 86850; 86900; 86901; 87040; 87086; 87149; 93005; 96365; 96367; 96375; J0696; J1940; J2001; J2185; J2250; J2270; J2543; J2704; J3010; J3370; J3475; J3480; J3490; J7512; J8597; P9047; Q0162; Q9966; S0028